=== PATIENT | female | born 1950 | race Caucasian/White ===

== ENCOUNTER → 2020-09-27 08:39 | Outpatient (CLI) | payer OTHER, SELFPAY ==
--- NOTE | ~2020-09-27 | US_ITS ---
US abdomen complete EXAMINATION: US Abdomen Complete INDICATION: Left upper abdominal pain PROCEDURE: Realtime High Resolution abdomen ultrasound. COMPARISON: No prior studies for comparison FINDINGS: Gallbladder within normal limits. No gallstones, pericholecystic fluid, gallbladder wall t hickening or biliary dilatation. Common bile duct measures 2 mm. Liver echotexture within normal limits without focal mass. Pancreas within normal limits. Pancreati c tail is obscured by bowel gas. Spleen contains a 6 mm echogenic focus, likely calcification or dutch ign hemangioma. Renal echotexture is within normal limits bilaterally without hydronephrosis, contour deforming mass or renal stone. Right kidney measures 10.6 cm. Left kidney measures 11.9 cm. There is atherosclerosis of the aorta without aneurysm. Portal vein is patent. No sonographic Eagle' s sign indicated by the technologist. IMPRESSION: 1: Unremarkable abdominal ultrasound. Reviewed, dictated and finalized at location A. RVISOR RECORDS CHANGE
--- NOTE | ~2020-09-27 | XR_ITS ---
XR chest 2V 09/27/2020 09:25 Indication: Emphysema Procedure: 2 view chest Comparison: 05/01/2017 Findings: Heart size normal. The lungs are hyperinflated which is consistent with, but not diagnostic of chronic obstructive pulmonary disease. No focal air space disease, pulmonary edema, pleural effus ion or suspected pneumothorax. Impression: 1: No acute cardiopulmonary disease. Reviewed, dictated and finalized at location A. ONENT ASSEMBLER Impression: 1: No acute cardiopulmonary disease.
== END ==
PROVIDERS: PCP Family Medicine; Visit Provider Family Medicine
DX: R10.9 Unspecified abdominal pain (principal); J43.9 Emphysema, unspecified
CPT/HCPCS: 71046; 76700

== ENCOUNTER → 2021-12-06 11:38 | Outpatient (CLI) | payer OTHER, SELFPAY ==
--- NOTE | ~2021-12-06 | MM_ITS ---
EXAMINATION: MM screening husam BI w eclina HISTORY: Screening mammogram TECHNIQUE: Craniocaudal and mediolateral oblique 3-D tomosynthesis images were obtained and synthetic 2-D images were generated. CAD analysis was submitted and interpreted. COMPARISON: 11/04/2013 bilateral screening mammogram BREAST PARENCHYMAL COMPOSITION: The breasts are heterogeneously dense, which may obscure small masses . FINDINGS: There is no evidence of suspicious mass, calcification, or architectural distortion to sugg est malignancy in either breast. There has been no suspicious interval change. IMPRESSION: 1. No mammographic evidence of malignancy. 2. Recommend routine screening mammography in one year. BI-RADS Category 1: Negative Reviewed, dictated and finalized at location A. N GOODS HEMMER
== END ==
PROVIDERS: Visit Provider Emergency Medicine
DX: Z12.31 Encounter for screening mammogram for malignant neoplasm of breast (principal)
CPT/HCPCS: 77063; 77067

== ENCOUNTER → 2021-12-26 12:01 | Outpatient (CLI) | payer OTHER, SELFPAY ==
--- NOTE | ~2021-12-26 | DEXA_ITS ---
Bone Density Report Name: PAULINE PHILIP Age: 71 Sex: Female Ethnicity: White Date of : 1950 Indication: postmenopausal; screening for osteoporosis; height loss; asthma or emphysema; hysterectomy; Referring Provider: HERLINDA KELLOGG Study: Bone densitometry was performed. Exam Date: December 26, 2021 Accession number: [id number] Bone Density: Region BMD T-score Z-score Classification AP Spine (L1-L4) 0.817 -2.1 0.0 Osteopenia Femoral Neck (Left) 0.677 -1.5 0.2 Osteopenia Total Hip (Left) 0.731 -1.7 -0.2 Osteopenia Femoral Neck (Right) 0.652 -1.8 0.0 Osteopenia Total Hip (Right) 0.717 -1.8 -0.3 Osteopenia Total Hip Mean 0.724 -1.8 -0.3 Osteopenia World Health Organization criteria for BMD impression classify patients as: Normal (T-score at or above -1.0), Osteopenia (T-score between -1.0 and -2.5), or Osteoporosis (T-score at or below -2.5). 10-year Fracture Risk(1): Major Osteoporotic Fracture 11% Hip Fracture 3.9% Reported Risk Factors: [place] (), Neck BMD=0.652, BMI=17.7, smoking, alcohol use (1) FRAX(R) Version 3.08. Fracture probability calculated for an untreated patient. Fracture probability may be lower if the patient has received treatment. Clinical Information Provided by Patient: Smokes Has 3 or more alcoholic drinks per day Has used the following medications: Vitamin D Has the following medical conditions: Asthma or Emphysema, Hysterectomy, COPD Patient maximum height was 64 Menopause Age: 42 Does not regularly consume dairy products Drinks caffeinated beverages Onset of menses at age 16 Number of children 2 Impression: The patient has low bone mass, based on the Total Spine T-score. The patient has an estimated ten-year risk of hip fracture of 3.9% and an estimated ten-year risk of major fracture of 11%, based on the WHO FRAX algorithm. The patient has risk factors, including: smoking, excessive alcohol use. Discussion: BONE DENSITY IS LOW AT ONE OR MORE SKELETAL SITES. THE PATIENT'S BMD AND CLINICAL RISK FACTORS CONTRIBUTE TO THIS PATIENT'S INCREASED RISK OF FRACTURE. This patient's lowest T-score is low at one or more skeletal sites. It meets the World Health Organization's (WHO) criteria for ?low bone mass? (T-score between -1.0 and -2.5). The patient's 10-year risk of hip fracture as calculated by FRAX exceeds the threshold where pharmacological therapy is recommended by the National Osteoporosis Foundation (NOF). However, all treatment decisions require clinical judgment and consideration of individual patient factors, including patient preferences, comorbidities, previous drug use, risk factors not captured in the FRAX model (e.g., frailty, falls, vitamin D deficiency, increased bone turnover, interval significant decline in bone density) and possible under
== END ==
PROVIDERS: PCP Emergency Medicine; Visit Provider Emergency Medicine
DX: Z78.0 Asymptomatic menopausal state (principal); M85.88 Other specified disorders of bone density and structure, other site; M85.852 Other specified disorders of bone density and structure, left thigh; M85.851 Other specified disorders of bone density and structure, right thigh
CPT/HCPCS: 77080

== ENCOUNTER → 2023-08-23 13:51 | Outpatient (CLI) | payer OTHER, SELFPAY ==
--- NOTE | ~2023-08-23 | MM_ITS ---
EXAMINATION: MM screening husam BI w celina HISTORY: Screening TECHNIQUE: Craniocaudal and mediolateral oblique 3-D tomosynthesis images were obtained and synthetic 2-D images were generated. CAD analysis was submitted and interpreted. COMPARISON: Comparison to multiple prior studies sequentially, with oldest reviewed study dated 11/04. BREAST PARENCHYMAL COMPOSITION: The breasts are extremely dense, which lowers the sensitivity of mamm ography FINDINGS: There is no evidence of suspicious mass, calcification, or architectural distortion to sugg est malignancy in either breast. There has been no suspicious interval change. IMPRESSION: 1. No mammographic evidence of malignancy. 2. Recommend routine screening mammography in one year. BI-RADS Category 1: Negative Reviewed, dictated and finalized at location A. SALES CONSULTANT
== END ==
PROVIDERS: PCP Emergency Medicine; Visit Provider Emergency Medicine
DX: Z12.31 Encounter for screening mammogram for malignant neoplasm of breast (principal)
CPT/HCPCS: 77063; 77067

== ENCOUNTER 2024-07-02 07:50 | Outpatient (CLI) | payer OTHER, SELFPAY | END 2024-07-02 07:51 | disposition home or self-care (01) | LOC: ANHAUDIO 07:51 | PROVIDERS: PCP Emergency Medicine; Visit Provider Emergency Medicine | DX: H90.42 Sensorineural hearing loss, unilateral, left ear, with unrestricted hearing on the contralateral side (principal) | CPT/HCPCS: 92557; 92567 ==

== ENCOUNTER 2024-09-29 08:00 | Outpatient (RCR) | payer OTHER, SELFPAY | END 2024-09-29 23:59 | disposition home or self-care (01) | LOC: ANHAUDIO 08:00 | PROVIDERS: PCP Emergency Medicine; Visit Provider Emergency Medicine | DX: Z46.1 Encounter for fitting and adjustment of hearing aid (principal) | CPT/HCPCS: V5221 ==

== ENCOUNTER 2024-10-17 10:48 | Outpatient (CLI) | payer OTHER, SELFPAY ==
--- NOTE | ~2024-10-17 | MM_ITS ---
EXAMINATION: MM screening husam BI w celina HISTORY: Screening mammogram, family history of breast cancer in her mother. TECHNIQUE: Craniocaudal and mediolateral oblique 3-D tomosynthesis images were obtained and synthetic 2-D images were generated. CAD analysis was submitted and interpreted. COMPARISON: 08/23/2023, 12/06/2021 BREAST PARENCHYMAL COMPOSITION:Dense: The breasts are heterogeneously dense, which may obscure small masses. FINDINGS: No suspicious mass, calcification, or architectural distortion are identified in either ciro ast to suggest malignancy. There has been no suspicious interval change. IMPRESSION: No mammographic evidence of malignancy. Recommend routine screening mammography in one year. BI-RADS Category 1: Negative Reviewed, dictated and finalized at location . MOLDER
== END 2024-10-17 10:49 | disposition home or self-care (01) ==
LOC: MICIMG 10:49
PROVIDERS: PCP Emergency Medicine; Visit Provider Emergency Medicine
DX: Z12.31 Encounter for screening mammogram for malignant neoplasm of breast (principal)
CPT/HCPCS: 77063; 77067

== ENCOUNTER 2024-10-29 10:42 | Outpatient (CLI) | payer OTHER, SELFPAY ==
--- NOTE | ~2024-10-29 | DEXA_ITS ---
Bone Density Report Name: PAULINE PHILIP Age: 74 Sex: Female Ethnicity: White Date of : 1950 Indication: postmenopausal; screening for osteoporosis; height loss; asthma or emphysema; hysterectomy; Referring Provider: HERLINDA KELLOGG Study: Bone densitometry was performed. Exam Date: October 29, 2024 Accession number: [id number] Bone Density: Region BMD T-score Z-score Classification AP Spine(L1-L4) 0.796 -2.3 0.0 Osteopenia Femoral Neck (Left) 0.659 -1.7 0.2 Osteopenia Total Hip (Left) 0.716 -1.9 -0.2 Osteopenia Femoral Neck (Right) 0.642 -1.9 0.1 Osteopenia Total Hip (Right) 0.730 -1.7 -0.1 Osteopenia Total Hip Mean 0.723 -1.8 -0.2 Osteopenia World Health Organization criteria for BMD impression classify patients as: Normal (T-score at or above -1.0), Osteopenia (T-score between -1.0 and -2.5), or Osteoporosis (T-score at or below -2.5). 10-year Fracture Risk(1): Major Osteoporotic Fracture 9.4% Hip Fracture 3.3% Reported Risk Factors: [place] (), Neck BMD=0.642, BMI=16.3, smoking (1) FRAX(R) Version 3.08. Fracture probability calculated for an untreated patient. Fracture probability may be lower if the patient has received treatment. Clinical Information Provided by Patient: Smokes Has used the following medications: Vitamin D, Calcium, cant remember name of drug for osteoporosis Has the following medical conditions: Asthma or Emphysema, Hysterectomy Patient maximum height was 64.0 Menopause Age: 42 Drinks caffeinated beverages Onset of menses at age 16 Number of children 2 Impression: The patient has low bone mass, based on the Total Spine T-score. The patient has an estimated ten-year risk of hip fracture of 3.3% and an estimated ten-year risk of major fracture of 9.4%, based on the WHO FRAX algorithm. The patient has risk factors, including: smoking. Discussion: BONE DENSITY IS LOW AT ONE OR MORE SKELETAL SITES. THE PATIENT'S BMD AND CLINICAL RISK FACTORS CONTRIBUTE TO THIS PATIENT'S INCREASED RISK OF FRACTURE. This patient's lowest T-score is low at one or more skeletal sites. It meets the World Health Organization's (WHO) criteria for ?low bone mass? (T-score between -1.0 and -2.5). The patient's 10-year risk of hip fracture as calculated by FRAX exceeds the threshold where pharmacological therapy is recommended by the National Osteoporosis Foundation (NOF). However, all treatment decisions require clinical judgment and consideration of individual patient factors, including patient preferences, comorbidities, previous drug use, risk factors not captured in the FRAX model (e.g., frailty, falls, vitamin D deficiency, increased bone turnover, interval significant decline in bone density) and possible under or overestimation of fracture risk by FRAX. The patient should follow a healthful lifestyle (good nutrition with adequate calcium and vitamin D, and appropriate weight-bearing exercise). Follow-Up: Consider a repeat BMD and Vertebral Fracture Assessment (VFA) exam in 2 years or sooner if medically necessary, to reassess this patient's status. Reported by: MOSES on 10/29/2024 11:19:00 AM. Reviewed, dictated and finalized at location AQuin APARICIO
== END 2024-10-29 10:43 | disposition home or self-care (01) ==
LOC: ANHIMG 10:48
PROVIDERS: PCP Emergency Medicine; Visit Provider Emergency Medicine
DX: E55.9 Vitamin D deficiency, unspecified (principal); Z78.0 Asymptomatic menopausal state; M85.88 Other specified disorders of bone density and structure, other site; M85.852 Other specified disorders of bone density and structure, left thigh; M85.851 Other specified disorders of bone density and structure, right thigh
CPT/HCPCS: 77080

== ENCOUNTER 2024-11-06 07:48 | Outpatient (CLI) | payer OTHER, SELFPAY ==
--- NOTE | ~2024-11-06 | XR_ITS ---
EXAMINATION: XR chest 2V DATE: 11/06/2024 08:05 INDICATION: Chronic obstructive pulmonary disease. TECHNIQUE: Frontal and lateral views of the chest were obtained. COMPARISON: Chest 2 views 09/27/2020, chest CT 06/04/2017 FINDINGS: The lungs are hyperexpanded with lucencies, consistent with emphysema. There are airspace o pacities at the lung bases on the lateral view. No pleural effusion or pneumothorax. The heart size i s normal. IMPRESSION: 1. Airspace opacities at the lung bases, consistent with atelectasis versus pneumonia. 2. Emphysema. Reviewed, dictated and finalized at location [] EYOR TENDER CONCRETE M[employer]ING [employer]ANT IMPRESSION: 1. Airspace opacities at the lung bases, consistent with atelectasis versus pne umonia. 2. Emphysema.
== END 2024-11-06 07:49 | disposition home or self-care (01) ==
PROVIDERS: PCP Emergency Medicine; Visit Provider Emergency Medicine
DX: J44.9 Chronic obstructive pulmonary disease, unspecified (principal); R91.8 Other nonspecific abnormal finding of lung field; J43.9 Emphysema, unspecified
CPT/HCPCS: 71046

== ENCOUNTER 2025-07-27 12:18 | Inpatient (IN) | payer OTHER, MEDICARE, SELFPAY ==
[2025-07-27] VITALS (13 sets, daily range): BP systolic 132–168; BP diastolic 59–76; PULSE 88–130; RESP 16–23; TEMP 35.9–36.2; O2SAT 86–100; BMI 15.5
--- NOTE | ~2025-07-27 | XR_ITS ---
EXAMINATION: XR chest 2V, 07/27/2025 12:45 CDT HISTORY: SOB COMPARISON: Comparison 11/06/2024 Technique: 2 views obtained. Findings: COPD changes. Basilar infiltrates and small effusion. On the lateral view there is a pleural-based nodular density measuring 1.5 x 1.5 cm probably in the left lower lobe. No pneumothorax. Heart is normal size. Mediastinal and hilar contours are within normal limits. Bony thorax no acute abnormality. Impression: Bilateral pneumonia superimposed on chronic lung disease. Left lung nodule. Chest CT with contrast recommended Reviewed, dictated and finalized at location P. Impression: Bilateral pneumonia superimposed on chronic lung disease. Left lung nodule. [facility] CT with contrast recommended
--- OUTSIDE RECORDS SUMMARY | 2025-07-27 07:42 | XMS_ITS | Encounter Summary ---
Author Organization [facility] Healthcare Address [address] [place] [address] Care Team Providers Care Provider Scribe Name Role Phone Girish Medina MD Primary Care Provide r Reason for Referral * MRI/CAT/PET Scan (Routine) - Closed Specialty Diagnoses / Procedures Referred By Contac t Referred To Contact Radiology Diagnoses Abdominal pain, unspecified abdominal location Shortness of breath Procedures CT Chest Abdomen Pelvis W Contrast Girish Medina MD [address] [address] Phone: tel: fax: [address] [phone] Referral ID Status Reason Start Date Expiration Date Visits Re quested Visits Authorized [id number] Closed 07/14/2025 08/13/2026 1 1 Reason for Visit * MRI/CAT/PET Scan (Routine) - Closed Specialty Diagnoses / Procedures Referred By Contac t Referred To Contact Radiology Diagnoses Abdominal pain, unspecified abdominal location Shortness of breath Procedures CT Chest Abdomen Pelvis W Contrast Girish Medina MD [address] [place] [address] Phone: tel: fax: [address] [phone] Referral ID Status Reason Start Date Expiration Date Visits Re quested Visits Authorized [id number] Closed 07/14/2025 08/13/2026 1 1 Encounter Details Date Type Department Care Team (Latest Contact Info) Description 07/27/2025 7:42 AM CDT Hospital [facility] [address] [place] [address] Abdominal pain, unspecified abdominal location; Shortness of breath Social History Tobacco Use Types Packs/Day Years Used Date Smoking Tobacco: Never Assessed Comments Unknown Sex and Gender Information Value Date Recorded Sex Assigned at Not on file 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 Gender Identity Not on file Sexual Orientation Not on file documented as of this encounter Plan of Treatment Pending Results Name Type Priority Associated Diagnoses Date /Time CT Chest Abdomen Pelvis W Contrast Imaging Schedule Routine, Read Routine (OP Routine) Abdominal pain, unspecified abdominal location Shortness of breath 07/27/2025 8:09 AM CDT Scheduled Orders Name Type Priority Associated Diagnoses Orde r Schedule CT Chest Abdomen Pelvis W Contrast Imaging Schedule Routine, Read Routine (OP Routine) Abdominal pain, unspecified abdominal location Shortness of breath Once for 1 Occurrences starting 07/27/2025 until 07/27/2025 documented as of this encounter Visit Diagnoses Diagnosis Abdominal pain, unspecified abdominal location Shortness of breath documented in this encounter Administered Medications Inactive Administered Medications - up to 3 most recent administrations Medication Order MAR Action Action Date Dose Rate Site ioversoL (OPTIRAY 350) syringe 100 mL 100 mL, intravenous, Once in imaging, contrast, Starting on 07/27/25 at 0806, For 1 dose Contrast Given 07/27/2025 8:06 AM CDT 90 mL documented in this encounter Orders Medications Ordered That Michael ht Not Have Been Administered Count Last Ordered Date First Ordered Date ioversoL (OPTIRAY 350) syringe 100 mL 1 documented in this encounter Care Teams Provider Scribe Relationship Specialty Start Date End Date Girish Medina MD [address] [place] [address] PCP - General Emergency Medicine 07/20/25 documented as of this encounter
--- OUTSIDE RECORDS SUMMARY | 2025-07-27 07:42 | XMS_ITS | Encounter Summary ---
Author Organization [facility] Healthcare Address [address] [place] [address] Care Team Providers Care Company Laborer Name Role Phone Girish Medina MD Primary Care Provide r Reason for Referral * MRI/CAT/PET Scan (Routine) - Closed Specialty Diagnoses / Procedures Referred By Contac t Referred To Contact Radiology Diagnoses Abdominal pain, unspecified abdominal location Shortness of breath Procedures CT Chest Abdomen Pelvis W Contrast Girish Medina MD [address] [address] Phone: tel: fax: [address] [phone] Referral ID Status Reason Start Date Expiration Date Visits Re quested Visits Authorized [id number] Closed 07/14/2025 08/13/2026 1 1 Reason for Visit * MRI/CAT/PET Scan (Routine) - Closed Specialty Diagnoses / Procedures Referred By Contac t Referred To Contact Radiology Diagnoses Abdominal pain, unspecified abdominal location Shortness of breath Procedures CT Chest Abdomen Pelvis W Contrast Girish Medina MD [address] [place] [address] Phone: tel: fax: [address] [phone] Referral ID Status Reason Start Date Expiration Date Visits Re quested Visits Authorized [id number] Closed 07/14/2025 08/13/2026 1 1 Encounter Details Date Type Department Care Team (Latest Contact Info) Description 07/27/2025 7:42 AM CDT Hospital Encounter [facility] [address] [place] [address] Abdominal pain, unspecified abdominal location; Shortness of breath Social History Tobacco Use Types Packs/Day Years Used Date Smoking Tobacco: Never Assessed Comments Unknown Sex and Gender Information Value Date Recorded Sex Assigned at Not on file Legal Sex Female 3:05 AM NEWSPERSON Gender Identity Not on file Sexual Orientation [...] 1 documented in this encounter Care Teams Company Laborer Relationship Specialty Start Date End Date Girish Medina MD [address] [place] [address] PCP - General Emergency Medicine 07/20/25 documented as of this encounter
--- NOTE | 2025-07-27 12:34 | ECG_ITS ---
Test Date: 2025-07-27 12:49:33 Measurements Intervals [place] Rate: 127 P: 71 TX: 136 QRS: 47 QRSD: 84 T: 59 QT: 310 QTc: 452 Interpretive Statements SINUS TACHYCARDIA MINIMAL Q WAVES- ANTEROLATERAL LEADS BASELINE ARTIFACT- I, II, AVR, AVL ABNORMAL ECG No previous ECG available for comparison Electronically Signed On 07-27-2025 15:41:24 CDT by Binu Segundo D.O.
[2025-07-27 12:47] LABS: Hematocrit 37.9 % (37.0-47.0); Hemoglobin 13.2 g/dL (12.0-15.0); Immature Granulocyte Percent A 1.0 % (0-0.5); Lymphocytes Absolute Auto 1.34 K/mm3 (0.9-3.2); Mean Corpuscular HGB Conc 34.8 g/dl (32-36); Mean Corpuscular Hemoglobin 29.7 pg (26-34); Mean Corpuscular Volume 85.4 fl (80-100); Nucleated Red Blood Cells Absolute Auto 0.000 K/mm3 (0.0-0.012); Nucleated Red Blood Cells Perc 0.0 % (0.0-0.2); Platelet Count Result 447 k/mm3 (150-375); Red Blood Count 4.44 M/mm3 (4.2-5.4); White Blood Count 33.5 K/mm3 (4.5-10.0)
[2025-07-27 13:05] LABS: Alanine Aminotransferase 32 U/L (6-35); Albumin Level 3.4 g/dL (3.5-5.1); Alkaline Phosphatase 149 U/L (38-126); Anion Gap 8 mmol/L (4-12); Aspartate Amino Transferase 40 U/L (14-36); Bilirubin,Total 0.5 mg/dL (0.2-1.3); Blood Urea Nitrogen 7 mg/dL (7-17); Calcium 8.9 mg/dL (8.4-10.2); Carbon Dioxide 30 mmol/L (22-30); Chloride 87 mmol/L (98-107); Estimated CRCL calculation 46 ml/min; Estimated Glomerular Filt Rate > 60; Glucose 131 mg/dL (65-110); Potassium 3.0 mmol/L (3.4-5.0); Sodium 125 mmol/L (137-145); Total Protein 6.7 g/dL (6.3-8.2)
--- OUTSIDE RECORDS SUMMARY | 2025-07-27 13:20 | XMS_ITS | Clinical Summary ---
Author Organization [facility] [place] Address [address] [place] [address] Care Team Providers Care Repair Table Operator Name Role Phone Girish Medina MD Primary Care Provide r Allergies No known active allergies Encounters Date Type Department Care Team Description 07/27/2025 7:42 AM CDT [facility] [address] [place] [address] Abdominal pain, unspecified abdominal location; Shortness of breath from Last 3 Months Social History Tobacco Use Types Packs/Day Years Used Date Smoking Tobacco: Never Assessed Comments Unknown Sex and Gender Information Value Date Recorded Sex Assigned at Not on file Legal Sex Female 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 Gender Identity Not on file Sexual Orientation Not on file Plan of Treatment Health Maintenance Due Date Last Done Comments Breast Cancer Screening-Mammogram 1950 Colon Cancer Screening-Colonoscopy 1950 Depression Screening 1950 Fall Risk Assessment 1950 Hepatitis C Screening 1950 Osteoporosis Screening-Bone Density Scan 1950 Hepatitis B Screening 01/04/1970 Well Visit 65+ 01/04/2017 Influenza Vaccine (#1) 2025 , 06/30/2023, 06/24/2022, Additional history exists DTaP/Tdap/Td Vaccine (2 - Td or Tdap) 02/11/2033 02/11/2023 Pneumococcal vaccine 65+ Completed 08/26/2022 Covid-19 Vaccine Completed 01/21/2025, 07/2024, 07/21/2023, Additional history exists Zoster Vaccine Completed 04/04/2025, 01/21/2025 Insurance [facility] Care Teams Repair Table Operator Relationship Specialty Start Date End Date Girish Medina MD [address] [place], [place] [phone] PCP - General Emergency Medicine 07/20/25
[2025-07-27] MEDS: IPRATROPIUM 0.5 MG/ALBUTEROL SULFATE 2.5 MG (BASE) AMPUL.NEB 3 ML INHALATION ×2 (13:47→19:19)
[2025-07-27] MEDS: cefTRIAXone 1 GM in SODIUM CHLORIDE 0.9% IV 50 ML 100 ML IVPB (14:16)
[2025-07-27] MEDS: SODIUM CHLORIDE 0.9% IV 1,000 ML 999 ML IV CONT (14:18)
--- OUTSIDE RECORDS SUMMARY | 2025-07-27 14:19 | XMS_ITS | Clinical Summary ---
Author Organization [facility] [place] Address [address] [place] [address] Care Team Providers Care Audiology Doctor Name Role Phone Girish Medina MD Primary Care Provide r Allergies No known active allergies Encounters Date Type Department Care Team Description 07/27/2025 7:42 AM CDT [facility] [address] [place] [address] Abdominal pain, unspecified abdominal location; Shortness of breath from Last 3 Months Social History Tobacco Use Types Packs/Day Years Used Date Smoking Tobacco: Never Assessed Comments Unknown Sex and Gender Information Value Date Recorded Sex Assigned at Not on file 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
[2025-07-27] MEDS: AZITHROMYCIN IV 500 MG in SODIUM CHLORIDE 0.9% IV 250 ML IVPB (14:27)
--- NOTE | 2025-07-27 14:28 | ED_ITS ---
HPI - SOB/Dyspnea General Chief Complaint: Shortness of Breath/Dyspnea Stated Complaint: shortness of breath, out of meds Time Seen by Provider: 07/27/25 12:35 History of Present Illness HPI Narrative: Patient is a 75-year-old female who presents ER with progressive shortness of breath over last 2 weeks. She feels it is related to the fact that she does not have her nebulizer medication. No fevers or chills. No productive cough. She does have a chronic wet cough that has been unchanged and is nonproductive. No chest pain or chest pressure. Unable to walk more than a block at this time, typically she can walk 2 blocks before she has to rest. On arrival here patient was hypoxic and is now requiring O2 which is a new experience for her. Patient had an outpatient CT scan of her chest today at [facility] but does not know the results. It was ordered by her PCP due to her shortness of breath. Related Data Allergies Allergy/AdvReac Type Severity Reaction Status Date / Time No Known Allergies Allergy Verified 07/27/25 15:49 Review of Systems 2 Review of Systems: All systems reviewed & are unremarkable except as noted in HPI and below Constitutional: Constitutional: Reports no additional constitutional complaints Cardiovascular: Cardiovascular: Reports no additional cardiovascular complaints Respiratory: Respiratory: Reports no additional respiratory complaints Gastrointestinal: Gastrointestinal: Reports no additional gastrointestinal complaints Integumentary/Breasts: Skin/Breast: Reports system reviewed and no additional complaints, except as docu PMFSH Past Medical History Medical History Sinus congestion Urge incontinence Hyponatremia COPD (chronic obstructive pulmonary disease) HTN (hypertension) Surgical History Surgical History History of hysterectomy (~1991) Family History Family History Father , 82 Kidney failure Hypertension Cancer Mother , 75 Liver failure Cancer Social History Social History Social History: Patient drinks 4 cups of caffeine daily Smoking packs per day: 1 Smoking cigarettes per day: 20.0 Years smoked: 40 Smoking pack-years: 40.00 Smoking status: Current every day smoker Tobacco type: cigarettes Alcohol intake: current Drinks per week: 8 Alcohol use details: Patient drinks 4 beers per day Substance use: never Substance use type: does not use Do You Feel Safe in your Home?: Yes Lack of Transportation: No Lack of Food: Never True Current Housing: I Have Housing Concerned About Future Housing: No Difficulty Paying Gas/Electric Bills: No Difficulty Paying for Meds: No Currently Unemployed: No Education: Decline to Answer Difficulty w/ Childcare or Family Care: No Spiritual care concerns: No Exam 2 Narrative: GENERAL: Chronically ill/frail-appearing, and in no acute distress. HEAD: Normocephalic, atraumatic. ENT: Mucous membranes moist. CHEST: Diminished lung sounds bilaterally. No respiratory distress. Frequent wet cough. HEART: Tachycardic, audible click at left lower sternal border. Normal peripheral pulses. ABDOMEN: Soft, nontender, nondistended. EXTREMITIES: Normal range of motion. No edema. SKIN: Warm, dry, no rash. NEURO: Alert and oriented x3. PSYCH: Normal mood and affect. Course Course Emergency Course: Admit to hospitalist Service, broad-spectrum antibiotics for pneumonia. Fluid resuscitation provided. Vital Signs Vital signs: Vital Signs Pulse Oximetry 86 L 07/27/25 12:34 Oxygen Delivery Room Air 07/27/25 12:34 Temperature 97.2 F L 07/27/25 20:04 Pulse Rate 97 07/27/25 20:04 Respiratory Rate 16 07/27/25 20:04 Blood Pressure 132/59 L 07/27/25 20:04 Pulse Oximetry 90 07/27/25 20:04 Oxygen Delivery Nasal Cannula 07/27/25 19:19 Oxygen Flow Rate 1 07/27/25 19:19 MDM - SOB/Dyspnea Lab Data 07/27/25 12:42 07/27/25 12:42 Labs: Lab Results 07/27/25 07/27/25 Range/Units 12:42 14:01 WBC 33.5 H (4.5-10.0) K/mm3 RBC 4.44 (4.2-5.4) M/mm3 Hgb 13.2 (12.0-15.0) g/dL Hct 37.9 (37.0-47.0) % MCV 85.4 (80-100) fl MCH 29.7 (26-34) pg MCHC 34.8 (32-36) g/dl RDW 14.4 (11.5-14.5) % Plt Count 447 H (150-375) k/mm3 MPV 8.8 (7.4-10.4) fl Immature Gran % (Auto) 1.0 H (0-0.5) % Neut % (Auto) 87.1 H (45.5-73.1) % Lymph % (Auto) 4.0 L (18.3-44.2) % [place] % (Auto) 7.5 (2.6-8.5) % Eos % (Auto) 0.2 (0-4.4) % Baso % (Auto) 0.2 (0.2-1.2) % Lymph # (Auto) 1.34 (0.9-3.2) K/mm3 [place] # (Auto) 2.5 H (0.1-0.6) K/mm3 Eos # (Auto) 0.1 (0-0.3) K/mm3 Baso # (Auto) 0.1 (0.0-0.1) K/mm3 Abs Immat Gran (auto) 0.35 H (0.00-0.031) K/mm3 Absolute Neuts (auto) 29.1 H (1.3-6.7) K/mm3 Absolute Nucleated RBC 0.000 (0.0-0.012) K/mm3 Nucleated RBC % 0.0 (0.0-0.2) % Sodium 125 L (137-145) mmol/L Potassium 3.0 L (3.4-5.0) mmol/L Chloride 87 L (98-107) mmol/L Carbon Dioxide 30 (22-30) mmol/L Anion Gap 8 (4-12) mmol/L BUN 7 (7-17) mg/dL Creatinine 0.53 L (0.7-1.0) mg/dL Estim Creat Clear Calc 46 ml/min Estimated GFR > 60 (59 - ) Glucose 131 H (65-110) mg/dL Lactic Acid 1.4 (0.7-2.0) mmol/L Calcium 8.9 (8.4-10.2) mg/dL Total Bilirubin 0.5 (0.2-1.3) mg/dL AST 40 H (14-36) U/L ALT 32 (6-35) U/L Alkaline Phosphatase 149 H (38-126) U/L Total Protein 6.7 (6.3-8.2) g/dL Albumin 3.4 L (3.5-5.1) g/dL Critical Care Time Critical Care Time Critical Care Time: Yes Total Critical Care Time: 35 Discharge Plan Discharge Clinical Impression: Pneumonia, Hypoxia Patient Disposition: Still a Patient Condition: Stable
[2025-07-27] MEDS: SODIUM CHLORIDE 0.9% IV 500 ML 999 ML IV CONT (14:30)
--- NOTE | 2025-07-27 14:42 | PC.NURSE ---
Pt/pt's reports that pt had chest CT with contrast completed this am. This RN called and spoke with the Clinical Radiologist group at this time and requested results be faxed to [facility].
--- NOTE | 2025-07-27 15:50 | P.HP_ITS ---
H&P: HPI History of Present Illness Date/Time: 07/27/25 15:50 Chief Complaint: Shortness of breath Narrative: 75-year-old female with past medical history of COPD-baseline RA, current smoker, HTN presented to the ED on 07/27/2025 with complaints of shortness of breath over the last 2 weeks. Patient feels that this is due to her running out of her albuterol inhaler and her Breztri. Patient denies fevers, chills, chest pain, or productive cough. She does have a chronic dry cough that is unchanged. Patient states she was able walk at least a couple blocks before needing to rest but states now she can barely go down the [place] without feeling short of breath. Upon arrival to the ED, patient was found to be 86% on room air and subsequently placed on 2 L of O2 with improvement in her O2 sats to 90%. Patient had CT chest abdomen pelvis today, 07/27/2025, with contrast ordered by her PCP at [facility] to evaluate shortness of breath (results scanned in). Imaging reveals: - patchy ground-glass and consolidative airspace opacities in the left upper and left lower lobe, concerning for multifocal airspace disease or inflammatory infectious etiology. -Scattered mild bronchial wall thickening with mucus plugging likely related to mild acute bronchitis/bronchiolitis superimposed on chronic bronchitis/bronchiolitis -moderate to severe emphysematous changes with scattered subsegmental atele ctasis and scarring -borderline enlarged prominent subcentimeter mediastinal and left hilar lymph nodes; likely reactive -mild mucosal thickening of distal transverse descending and sigmoid colon -mild mucosal thickening of the urinary bladder -mild mucosal thickening of the gastric atrium -bilateral indeterminate adrenal nodules Chest x-ray at this facility reveals bilateral pneumonia superimposed on chronic lung disease, left lung nodule Initial vital signs 168/76 BP, heart rate 130, respirations 23, temp 96.6? F, SpO2 86% on room air; improved with 2 L per nasal cannula Lab significant for leukocytosis with white count 33.5, Na 125, potassium 3.0, AST 40, alk-phos 149, albumin 3.4 Blood cultures drawn 500 mL NS bolus Review of Systems Review of Systems: All systems reviewed & are unremarkable except as noted in HPI and below PMFSH Past Medical History Medical History Sinus congestion Urge incontinence Hyponatremia COPD (chronic obstructive pulmonary disease) HTN (hypertension) Surgical History Surgical History History of hysterectomy (~1991) Family History Family History Father , 82 Kidney failure Hypertension Cancer Mother , 75 Liver failure Cancer Social History Social History Social History: Patient drinks 4 cups of caffeine daily Smoking packs per day: 1 Smoking cigarettes per day: 20.0 Years smoked: 40 Smoking pack-years: 40.00 Smoking status: Current every day smoker Alcohol intake: current Drinks per week: 28 Alcohol use details: Patient drinks 4 beers per day Substance use: never Substance use type: does not use Do You Feel Safe in your Home?: Yes Lack of Transportation: No Lack of Food: Never True Current Housing: Decline to Answer Concerned About Future Housing: Decline to Answer Difficulty Paying Gas/Electric Bills: Decline to Answer Difficulty Paying for Meds: Decline to Answer Currently Unemployed: Decline to Answer Education: Decline to Answer Difficulty w/ Childcare or Family Care: Decline to Answer Meds Home Medications and Allergies Home Medications ?Medication ?Instructions ?Recorded ?Confirmed ?Type alendronate 70 mg tablet See Rx Instructions .Route 0 06/23/25 07/27/25 Rx .COMPLEX #12 tabs fluticasone propionate 50 1 spray intranasal BID #48 g lloyd 06/23/25 07/27/25 Rx mcg/actuation nasal spray,suspension (Flonase Allergy Relief) metoprolol tartrate 50 See Rx Instructions .Route 0 06/23/25 07/27/25 Rx mg-hydrochlorothiazide 25 mg tablet .COMPLEX #90 tabs tolterodine 2 mg tablet 2 mg PO DAILY #90 tabs 06/2307/27/25 Rx albuterol sulfate 90 mcg/actuation See Rx Instructions .Route 07/17/25 07/27/25 Rx aerosol inhaler .COMPLEX #8.5 ea budesonide 160 mcg-glycopyr 9 2 inh inhalation BID #32 .1 grams 07/17/25 07/27/25 Rx mcg-formot 4.8 mcg/actuation HFA inhaler (Breztri Aerosphere) Allergies Allergy/AdvReac Type Severity Reaction Status Date / Time No Known Allergies Allergy Verified 07/27/25 15:49 Vital Signs Vital Signs - 24 hr 07/27/25 12:34 07/27/25 12:35 07/27/25 12:39 Pulse Rate 130 H Respiratory Rate 23 H Blood Pressure 168/76 H Pulse Oximetry 86 L 94 95 Oxygen Delivery Room Air Nasal Cannula Nasal Cannula Oxygen Flow Rate 2 2 07/27/25 12:43 07/27/25 13:47 07/27/25 15:13 Pulse Rate 112 H 108 H Respiratory Rate 16 20 Blood Pressure 154/69 H Pulse Oximetry 95 100 Oxygen Delivery Nasal Cannula Oxygen Flow Rate 2 Exam Narrative: GENERAL: Chronically ill-appearing, in no acute distress. HEAD: Normocephalic, atraumatic. EYES: PERRLA. Conjunctivae clear. NOSE: Normal no drainage. Nasal cannula in place THROAT: Pharynx clear, no exudate. NECK: Trachea midline. No adenopathy, no masses. RESPIRATORY: Airway patent, respirations nonlabored. Diminished breath sounds throughout. CARDIOVASCULAR: Regular rate and rhythm. No edema. Peripheral pulses palpable BREASTS: Defer GASTROINTESTINAL: Abdomen is soft and nontender. No organomegaly. Bowel sounds normal in all quadrants. GENITOURINARY: Defer MUSCULOSKELETAL: Moves all extremities. No gross deformities. Moves all extremities well. No calf tenderness. SKIN: Warm, dry, normal color. NEURO: A&O X4. Speech clear PSYCHIATRIC: Normal interaction H&P: Results Labs Labs: Short CBC 07/27/25 Range/Units 12:42 WBC 33.5 H (4.5-10.0) K/mm3 Hgb 13.2 (12.0-15.0) g/dL Hct 37.9 (37.0-47.0) % Plt Count 447 H (150-375) k/mm3 BMP 07/27/25 12:42 Sodium 125 L Potassium 3.0 L Chloride 87 L Carbon Dioxide 30 BUN 7 Creatinine 0.53 L Glucose 131 H Calcium 8.9 Liver Function 07/27/25 Range/Units 12:42 Total Bilirubin 0.5 (0.2-1.3) mg/dL AST 40 H (14-36) U/L ALT 32 (6-35) U/L Alkaline Phosphatase 149 H (38-126) U/L Albumin 3.4 L (3.5-5.1) g/dL Assessment and Plan Assessment and plan (1) Pneumonia: Qualifiers: Laterality: bilateral Lung location: unspecified part of lung Pneumonia type: due to unspecified organism Qualified Code(s): J18.9 - Pneumonia, unspecified organism Code(s): J18.9 - Pneumonia, unspecified organism Status: Acute Assessment and Plan: Patient presents to ED with 2 week history of shortness of breath. History of COPD and current smoker. Chest x-ray at this facility reveals bilateral pneumonia superimposed on chronic lung disease, left lung nodule. See CT chest abdomen pelvis results in HPI - started on CAP tx azithromycin and ceftriaxone on 07/27 - MRSA PCR negative -viral PCR ordered -new supplemental O2 at 2 L nasal cannula required. Wean as tolerated -Tylenol 650 Q 4 p.r.n. -DuoNeb q.6 -Mucinex 600 mg q.12 (2) Hypoxia: Code(s): R09.02 - Hypoxemia Status: Acute Assessment and Plan: History of COPD and current smoker. O2 86% on room air on arrival. currently requiring supplemental O2 likely due to active pneumonia superimposed on emphysema -wean as tolerated -encourage IS use (3) COPD (chronic obstructive pulmonary disease): Qualifiers: COPD type: unspecified COPD Qualified Code(s): J44.9 - Chronic obstructive pulmonary disease, unspecified Code(s): J44.9 - Chronic obstructive pulmonary disease, unspecified Status: Chronic Assessment and Plan: Current smoker. Chest CT with moderate to severe emphysematous changes with scattered subsegmental atelectasis and scarring -albuterol inhaler and Breztri at home -DuoNebs while inpatient -smoking cessation information provided (4) HTN (hypertension): Qualifiers: Hypertension type: essential hypertension Qualified Code(s): I10 - Essential (primary) hypertension Code(s): I10 - Essential (primary) hypertension Status: Chronic Assessment and Plan: Continue hydrochlorothiazide and metoprolol Plan Diet: Heart healthy GI prophylaxis: NA DVT prophylaxis: SCDs lines/drains: PIV Fluids: 500 mL NS Code status: Full Quality VTE Prophylaxis VTE prophylaxis: mechanical ordered Hospitalist MIPS Advance Care Plan I have confirmed that the patient's Advanced Care Plan is present, code status is documented, or surrogate decision maker is listed in patient medical record.: Yes Medication Reconciliation I have utilized all available resources to obtain, update and review the patients current medications (includes all prescriptions, OTC, herbals, cannabis, and nutritional supplements).: Yes
--- NOTE | 2025-07-27 16:03 | ADMGEN ---
This patient, Reina Carrillo, was admitted to [facility] Surg Room 312-01. Patient/family oriented to hospital policies and general routines including ID bracelet, bed and alarms, visiting hours, pain management, procedures, bathroom and other care routines, personal items, smoking policy, room service/diet, and visiting hours. Information on how to activate the Rapid Response Team has been discussed. Patient/Family are encouraged to report perceived risks to care and to ask questions if they do not understand what they are told or what they should do. received report from Teri
[2025-07-27] MEDS: SODIUM CHLORIDE 0.9% IV 1,000 ML 125 ML IV CONT (18:39)
[2025-07-27 19:34] LABS: MRSA (PCR) NOT DETECTED (NOT DETECTE)
[2025-07-28] VITALS (15 sets, daily range): BP systolic 155–172; BP diastolic 75–84; PULSE 71–95; RESP 16–20; TEMP 36.4–36.6; O2SAT 90–94; BMI 15.5
[2025-07-28] MEDS: IPRATROPIUM 0.5 MG/ALBUTEROL SULFATE 2.5 MG (BASE) AMPUL.NEB 3 ML INHALATION ×4 (01:37→20:00)
[2025-07-28] MEDS: SODIUM CHLORIDE 0.9% IV 1,000 ML 125 ML IV CONT ×2 (03:35→19:30)
[2025-07-28 04:33] LABS: Influenza A QL RT-PCR Negative (Negative); Influenza B QL RT-PCR Negative (Negative); RSV RNA, RT-PCR Negative (Negative); SARS-CoV-2 RNA PCR Negative (Negative)
[2025-07-28 06:19] LABS: Hematocrit 35.9 % (37.0-47.0); Hemoglobin 12.1 g/dL (12.0-15.0); Mean Corpuscular HGB Conc 33.7 g/dl (32-36); Mean Corpuscular Hemoglobin 29.5 pg (26-34); Mean Corpuscular Volume 87.6 fl (80-100); Platelet Count Result 418 k/mm3 (150-375); Red Blood Count 4.10 M/mm3 (4.2-5.4); White Blood Count 20.4 K/mm3 (4.5-10.0)
[2025-07-28 06:53] LABS: Anion Gap 2 mmol/L (4-12); Blood Urea Nitrogen 2 mg/dL (7-17); Calcium 7.9 mg/dL (8.4-10.2); Carbon Dioxide 29 mmol/L (22-30); Chloride 99 mmol/L (98-107); Estimated CRCL calculation 84 ml/min; Estimated Glomerular Filt Rate > 60; Glucose 91 mg/dL (65-110); Sodium 130 mmol/L (137-145)
--- NOTE | 2025-07-28 07:30 | P.PNIM_ITS ---
Progress Note: A&P Assessment and Plan (1) Pneumonia: Qualifiers: Laterality: bilateral Lung location: unspecified part of lung Pneumonia type: due to unspecified organism Qualified Code(s): J18.9 - Pneumonia, unspecified organism Code(s): J18.9 - Pneumonia, unspecified organism Status: Acute Assessment and Plan: Patient presents to ED with 2 week history of shortness of breath. History of COPD and current smoker. Chest x-ray at this facility reveals bilateral pneumonia superimposed on chronic lung disease, left lung nodule. See CT chest abdomen pelvis results in HPI - started on CAP tx azithromycin and ceftriaxone on 07/27 - MRSA PCR negative -viral PCR ordered -new supplemental O2 at 2 L nasal cannula required. Wean as tolerated -Tylenol 650 Q 4 p.r.n. -DuoNeb q.6 -Mucinex 600 mg q.12 continue zithro IV, rocephin 1 gm q24h wean o2 as tolerated PT/OT added IS (2) Hypoxia: Code(s): R09.02 - Hypoxemia Status: Acute Assessment and Plan: History of COPD and current smoker. O2 86% on room air on arrival. currently requiring supplemental O2 likely due to active pneumonia superimposed on emphysema -wean as tolerated -encourage IS use (3) COPD (chronic obstructive pulmonary disease): Qualifiers: COPD type: unspecified COPD Qualified Code(s): J44.9 - Chronic obstructive pulmonary disease, unspecified Code(s): J44.9 - Chronic obstructive pulmonary disease, unspecified Status: Chronic Assessment and Plan: Current smoker. Chest CT with moderate to severe emphysematous changes with scattered subsegmental atelectasis and scarring -albuterol inhaler and Breztri at home -DuoNebs while inpatient -smoking cessation information provided (4) HTN (hypertension): Qualifiers: Hypertension type: essential hypertension Qualified Code(s): I10 - Essential (primary) hypertension Code(s): I10 - Essential (primary) hypertension Status: Chronic Assessment and Plan: Continue hydrochlorothiazide and metoprolol (5) Hypokalemia: Code(s): E87.6 - Hypokalemia Status: Acute Assessment and Plan: - K is 2.6 today - will order iV replacement, add PO daily and will recheck K level once iv is infused - continue tele Plan Diet: Heart healthy GI prophylaxis: NA DVT prophylaxis: SCDs lines/drains: PIV Fluids: 500 mL 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 Patient feels that this is due to her running out of her albuterol inhaler and her Breztri. Patient denies fevers, chills, chest pain, or productive cough. She does have a chronic dry cough that is unchanged. Patient states she was able walk at least a couple blocks before needing to rest but states now she can barely go down the [place] without feeling short of breath. Upon arrival to the ED, patient was found to be 86% on room air and subsequently placed on 2 L of O2 with improvement in her O2 sats to 90%. Patient had CT chest abdomen pelvis today, 07/27/2025, with contrast ordered by her PCP at [facility] to evaluate shortness of breath (results scanned in). Imaging reveals: - patchy ground-glass and consolidative airspace opacities in the left upper and left lower lobe, concerning for multifocal airspace disease or inflammatory infectious etiology. -Scattered mild bronchial wall thickening with mucus plugging likely related to mild acute bronchitis/bronchiolitis superimposed on chronic bronchitis/bronchiolitis -moderate to severe emphysematous changes with scattered subsegmental atelectasis and scarring -borderline enlarged prominent subcentimeter mediastinal and left hilar lymph nodes; likely reactive -mild mucosal thickening of distal transverse descending and sigmoid colon -mild mucosal thickening of the urinary bladder -mild mucosal thickening of the gastric atrium -bilateral indeterminate adrenal nodules Chest x-ray at this facility reveals bilateral pneumonia superimposed on chronic lung disease, left lung nodule Initial vital signs 168/76 BP, heart rate 130, respirations 23, temp 96.6? F, SpO2 86% on room air; improved with 2 L per nasal cannula Lab significant for leukocytosis with white count 33.5, Na 125, potassium 3.0, A ST 40, alk-phos 149, albumin 3.4 Blood cultures drawn 500 mL NS bolus 07/25 K is low. on Tele pt is seen and examined. Remains on 2l per nc Review of Systems Review of Systems: All systems reviewed & are unremarkable except as noted in HPI and below Exam Narrative: GENERAL: Chronically ill-appearing, in no acute distress. HEAD: Normocephalic, atraumatic. EYES: PERRLA. Conjunctivae clear. NOSE: Normal no drainage. Nasal cannula in place THROAT: Pharynx clear, no exudate. NECK: Trachea midline. No adenopathy, no masses. RESPIRATORY: Airway patent, respirations nonlabored. Diminished breath sounds throughout. CARDIOVASCULAR: Regular rate and rhythm. No edema. Peripheral pulses palpable BREASTS: Defer GASTROINTESTINAL: Abdomen is soft and nontender. No organomegaly. Bowel sounds normal in all quadrants. GENITOURINARY: Defer MUSCULOSKELETAL: Moves all extremities. No gross deformities. Moves all extremities well. No calf tenderness. SKIN: Warm, dry, normal color. NEURO: A&O X4. Speech clear PSYCHIATRIC: Normal interaction Objective Data Vital Signs Vital Signs: Vital Signs - 24 hr 07/27/25 12:34 07/27/25 12:35 07/27/25 12:39 Temperature Pulse Rate 130 H Respiratory Rate 23 H Blood Pressure 168/76 H Pulse Oximetry 86 L 94 95 Oxygen Delivery Room Air Nasal Cannula Nasal Cannula Oxygen Flow Rate 2 2 07/27/25 12:43 07/27/25 13:47 07/27/25 15:13 Temperature Pulse Rate 112 H 108 H Respiratory Rate 16 20 Blood Pressure 154/69 H Pulse Oximetry 95 100 Oxygen Delivery Nasal Cannula Oxygen Flow Rate 2 07/27/25 15:45 07/27/25 16:03 07/27/25 19:19 Temperature 96.6 F L Pulse Rate 104 H Respiratory Rate 18 Blood Pressure 148/69 H Pulse Oximetry 98 95 96 Oxygen Delivery Nasal Cannula Nasal Cannula Oxygen Flow Rate 2 1 07/27/25 19:21 07/27/25 19:29 07/27/25 20:00 Temperature Pulse Rate 88 92 Respiratory Rate 18 18 Blood Pressure Pulse Oximetry 90 Oxygen Delivery Nasal Cannula Oxygen Flow Rate 1 07/27/25 20:04 07/28/25 01:37 07/28/25 01:50 Temperature 97.2 F L Pulse Rate 97 85 88 Respiratory Rate 16 18 18 Blood Pressure 132/59 L Pulse Oximetry 90 Oxygen Delivery Oxygen Flow Rate 07/28/25 05:03 Temperature 97.9 F Pulse Rate 95 Respiratory Rate 18 Blood Pressure 155/75 H Pulse Oximetry 92 Oxygen Delivery Oxygen Flow Rate Intake/Output Intake/Output: Intake & Output 07/25/25 07/26/25 07/27/25 07/28/25 23:59 23:59 23:59 23:59 Intake Total 2340 1000 Balance 2340 1000 Meds/Results Medications: Active Medications Generic Name Dose Route Start Last Admin Trade Name Freq PRN Reason Stop Dose Admin Acetaminophen 650 mg 07/27/25 14:39 Acetaminophen 325 Mg Tablet PO Q4H PRN Mild Pain (1-3) or Fever Hydrocodone Bitart/Acetaminophen 1 tab 07/27/25 14:39 Hydrocodone/Acetaminophen (*Crx) 5-325 Mg Tablet PO Q4H PRN Pain Rated 4-6 Albuterol/Ipratropium 3 ml 07/27/25 20:00 07/28/25 01:37 Ipratropium 0.5 Mg/Albuterol Sulfate 2.5 Mg (Base) Ampul.Neb 3 Ml INHALATION 3 ml Q6HRT [facility] Administration Fluticasone Propionate 1 spray 07/27/25 18:55 07/27/25 19:55 Fluticasone Propionate 0.05% Na Spr 16 Gm Btl (*Bkc) NASAL Not Given BID SO[facility] Fluticasone/Umeclidinium/Vilanterol 1 puff 07/28/25 09:00 Fluticasone/Umeclidin/Vilanter 100-62.5-25 Mcg Ellipta INHALATION DAILY [facility] Guaifenesin 600 mg 07/28/25 09:00 Guaifenesin 12 Hr 600 Mg Tabcr PO Q12HR [facility] Hydrochlorothiazide 25 mg 07/28/25 09:00 Hydrochlorothiazide 25 Mg Tablet PO DAILY [facility] Ceftriaxone Sodium 1 gm/ 50 mls @ 100 mls/hr 07/27/25 13:00 07/27/25 18:32 Sodium Chloride IVPB Not Given Q24H [facility] Azithromycin 500 mg/ Sodium 250 mls @ 250 mls/hr 07/27/25 14:00 07/27/25 18:33 Chloride IVPB 07/30/25 14:59 Not Given Q24H [facility] Sodium Chloride 1,000 mls @ 125 mls/hr 07/27/25 14:40 07/28/25 03:35 Normal Saline Iv IV CONT 125 mls/hr .Q8H [facility] Administration Potassium Chloride 40 meq/ 520 mls @ 130 mls/hr 07/28/25 07:25 Sodium Chloride IVPB 07/28/25 11:24 ONCE ONE Metoprolol Tartrate 50 mg 07/28/25 09:00 Metoprolol Tartrate 50 Mg Tab PO DAILY [facility] Potassium Chloride 40 meq 07/28/25 09:00 Potassium Chloride 20 Meq Packet (For Liquid) PO 08/01/25 09:01 DAILY [facility] Promethazine HCl 12.5 mg 07/27/25 14:39 Promethazine Hcl 25 Mg/Ml Ampul IV PUSH Q6H PRN Nausea Tolterodine Tartrate 2 mg 07/28/25 09:00 Tolterodine Tartrate 2 Mg Tablet PO DAILY [facility] Radiology Results: ITS Impressions Chest X-Ray 07/27/25 13:05 Impression: Bilateral pneumonia superimposed on chronic lung disease. Left lung nodule. Chest CT with contrast recommended Labs Labs: Laboratory Results - last 24 hr 07/27/25 07/27/25 07/27/25 12:42 14:01 18:14 WBC 33.5 H RBC 4.44 Hgb 13.2 Hct 37.9 MCV 85.4 MCH 29.7 MCHC 34.8 RDW 14.4 Plt Count 447 H MPV 8.8 Immature Gran % (Auto) 1.0 H Neut % (Auto) 87.1 H Lymph % (Auto) 4.0 L [place] % (Auto) 7.5 Eos % (Auto) 0.2 Baso % (Auto) 0.2 Lymph # (Auto) 1.34 [place] # (Auto) 2.5 H Eos # (Auto) 0.1 Baso # (Auto) 0.1 Abs Immat Gran (auto) 0.35 H Absolute Neuts (auto) 29.1 H Absolute Nucleated RBC 0.000 Nucleated RBC % 0.0 Sodium 125 L Potassium 3.0 L Chloride 87 L Carbon Dioxide 30 Anion Gap 8 BUN 7 Creatinine 0.53 L Estim Creat Clear Calc 46 Estimated GFR > 60 Glucose 131 H Lactic Acid 1.4 Calcium 8.9 Total Bilirubin 0.5 AST 40 H ALT 32 Alkaline Phosphatase 149 H Total Protein 6.7 Albumin 3.4 L Nasal MRSA (PCR) Not detected Influenza A (RT-PCR) Influenza B (RT-PCR) RSV (RT-PCR) SARS-CoV-2 RNA (RT-PCR) 07/28/25 07/28/25 03:39 05:38 WBC 20.4 H RBC 4.10 L Hgb 12.1 Hct 35.9 L MCV 87.6 MCH 29.5 MCHC 33.7 RDW 14.7 H Plt Count 418 H MPV 9.3 Immature Gran % (Auto) Neut % (Auto) Lymph % (Auto) [place] % (Auto) Eos % (Auto) Baso % (Auto) Lymph # (Auto) [place] # (Auto) Eos # (Auto) Baso # (Auto) Abs Immat Gran (auto) Absolute Neuts (auto) Absolute Nucleated RBC Nucleated RBC % Sodium 130 L Potassium 2.6 L* Chloride 99 Carbon Dioxide 29 Anion Gap 2 L BUN 2 L D Creatinine 0.30 L Estim Creat Clear Calc 84 Estimated GFR > 60 Glucose 91 Lactic Acid Calcium 7.9 L Total Bilirubin AST ALT Alkaline Phosphatase Total Protein Albumin Nasal MRSA (PCR) Influenza A (RT-PCR) Negative Influenza B (RT-PCR) Negative RSV (RT-PCR) Negative SARS-CoV-2 RNA (RT-PCR) Negative Quality VTE Prophylaxis VTE prophylaxis: mechanical ordered
[2025-07-28] MEDS: POTASSIUM CHLORIDE INJ 40 MEQ in SODIUM CHLORIDE 0.9% IV 500 ML 130 MEQ IVPB (08:05)
[2025-07-28] MEDS: METOPROLOL TARTRATE 50 MG TAB PO (08:06)
[2025-07-28] MEDS: POTASSIUM CHLORIDE 20 MEQ PACKET (FOR LIQUID) 40 MEQ PO (08:07)
[2025-07-28] MEDS: TOLTERODINE TARTRATE 2 MG TABLET PO (08:07)
[2025-07-28] MEDS: guaiFENesin 12 HR 600 MG TABCR PO ×2 (08:07→20:45)
[2025-07-28 08:16] LABS: Magnesium 1.6 mg/dL (1.6-2.3)
--- NOTE | 2025-07-28 09:16 | P.CDI_ITS ---
CDI Query Clarification Request 1) Please review the clinical information below and clarify the respiratory diagnosis the patient is being treated for: * Hypoxia or hypoxemia without respiratory failure * Respiratory distress without respiratory failure * Acute respiratory failure with hypoxia * Acute respiratory failure with hypercapnia * Acute respiratory failure with hypoxia and hypercapnia * Acute on chronic respiratory failure with hypoxia * Acute on chronic respiratory failure with hypercapnia * Acute on chronic respiratory failure with hypoxia and hypercapnia * Acute respiratory distress syndrome (ARDS) * Chronic respiratory failure with hypoxia * Chronic respiratory failure with hypercapnia * Chronic respiratory failure with hypoxia and hypercapnia * Other explanation clinical findings, please specify * Unable to determine 2) Please specify status of COPD, if known. * Exacerbation of COPD * No exacerbation/stable COPD * Other * Unable to determine The medical chart reflects the following: Assessment and Plan (1) Pneumonia: Qualifiers: Laterality: bilateral Lung location: unspecified part of lung Pneumonia type: due to unspecified organism Qualified Code(s): J18.9 - Pneumonia, unspecified organism Code(s): J18.9 - Pneumonia, unspecified organism Status: Acute Assessment and Plan: Patient presents to ED with 2 week history of shortness of breath. History of COPD and current smoker. Chest x-ray at this facility reveals bilateral pneumonia superimposed on chronic lung disease, left lung nodule. See CT chest abdomen pelvis results in HPI - started on CAP tx azithromycin and ceftriaxone on 07/27 - MRSA PCR negative -viral PCR ordered -new supplemental O2 at 2 L nasal cannula required. Wean as tolerated -Tylenol 650 Q 4 p.r.n. -DuoNeb q.6 -Mucinex 600 mg q.12 (2) Hypoxia: Code(s): R09.02 - Hypoxemia Status: Acute Assessment and Plan: History of COPD and current smoker. O2 86% on room air on arrival. currently requiring supplemental O2 likely due to active pneumonia superimposed on emphysema -wean as tolerated -encourage IS use (3) COPD (chronic obstructive pulmonary disease): Qualifiers: COPD type: unspecified COPD Qualified Code(s): J44.9 - Chronic obstructive pulmonary disease, unspecified Code(s): J44.9 - Chronic obstructive pulmonary disease, unspecified Status: Chronic Assessment and Plan: Current smoker. Chest CT with moderate to severe emphysematous changes with scattered subsegmental atelectasis and scarring -albuterol inhaler and Breztri at home -DuoNebs while inpatient -smoking cessation information provided (4) HTN (hypertension): Qualifiers: Hypertension type: essential hypertension Qualified Code(s): I10 - Essential (primary) hypertension Code(s): I10 - Essential (primary) hypertension Status: Chronic Assessment and Plan: Continue hydrochlorothiazide and metoprolol (5) Hypokalemia: Code(s): E87.6 - Hypokalemia Status: Acute Assessment and Plan: - K is 2.6 today - will order iV replacement, add PO daily and will recheck K level once iv is infused - continue tele CXR: Impression: Bilateral pneumonia superimposed on chronic lung disease. Left lung nodule. Chest CT with contrast recommended <Mien Smith RN - Last Filed: 07/28/25 09:22> Clarified Diagnosis Clarified Diagnosis: Hypoxia or hypoxemia without respiratory failure <Anna Rivas APRN - Last Filed: 07/28/25 14:40>
[2025-07-28] MEDS: FLUTICASONE/UMECLIDIN/VILANTER 100-62.5-25 MCG ELLIPTA 1 PUFF INHALATION (10:15)
[2025-07-28] MEDS: cefTRIAXone 1 GM in SODIUM CHLORIDE 0.9% IV 50 ML 100 ML IVPB (14:31)
[2025-07-28] MEDS: AZITHROMYCIN IV 500 MG in SODIUM CHLORIDE 0.9% IV 250 ML IVPB (15:16)
[2025-07-28 18:13] LABS: Potassium 3.2 mmol/L (3.4-5.0)
[2025-07-29] VITALS (21 sets, daily range): BP systolic 141–172; BP diastolic 60–79; PULSE 68–100; RESP 12–20; TEMP 36.1–36.7; O2SAT 91–97
[2025-07-29] MEDS: IPRATROPIUM 0.5 MG/ALBUTEROL SULFATE 2.5 MG (BASE) AMPUL.NEB 3 ML INHALATION ×4 (01:29→20:22)
[2025-07-29] MEDS: SODIUM CHLORIDE 0.9% IV 1,000 ML 125 ML IV CONT (03:16)
[2025-07-29 06:12] LABS: Hematocrit 34.4 % (37.0-47.0); Hemoglobin 11.4 g/dL (12.0-15.0); Mean Corpuscular HGB Conc 33.1 g/dl (32-36); Mean Corpuscular Hemoglobin 29.6 pg (26-34); Mean Corpuscular Volume 89.4 fl (80-100); Platelet Count Result 370 k/mm3 (150-375); Red Blood Count 3.85 M/mm3 (4.2-5.4); White Blood Count 9.8 K/mm3 (4.5-10.0)
[2025-07-29 06:36] LABS: Anion Gap 3 mmol/L (4-12); Calcium 8.3 mg/dL (8.4-10.2); Carbon Dioxide 32 mmol/L (22-30); Chloride 92 mmol/L (98-107); Estimated CRCL calculation 89 ml/min; Estimated Glomerular Filt Rate > 60; Glucose 93 mg/dL (65-110); Potassium 2.7 mmol/L (3.4-5.0); Sodium 127 mmol/L (137-145)
[2025-07-29 06:40] LABS: Blood Urea Nitrogen < 2 mg/dL (7-17)
[2025-07-29] MEDS: POTASSIUM CHLORIDE 20 MEQ PACKET (FOR LIQUID) 40 MEQ PO ×2 (07:24→09:01)
[2025-07-29] MEDS: FLUTICASONE/UMECLIDIN/VILANTER 100-62.5-25 MCG ELLIPTA 1 PUFF INHALATION (07:39)
--- NOTE | 2025-07-29 07:59 | P.PNCROSS_ITS ---
Event Note Event Note Event Note: Nursing staff notified me that the patient has hypokalemia with potassium of 2. 7. 40 mEq potassium chloride tablet has been ordered now. The patient has daily potassium ordered that still needs to be given at 09:00. The patient had a magnesium level of 1.6 yesterday which although are labs states that this is a normal level is actually considered a low level in a patient that already has hypokalemia. A 4 g magnesium sulfate rider has been ordered. I requested a phosphate level be obtained. This returned as I was doing this documentation and so I ordered a 40 Julieth molar potassium phosphate rider. Patient will need repeat BMP this afternoon. I given directions to call daytime hospitalist with result if potassium less than 3.5.
--- NOTE | 2025-07-29 08:40 | PM.IMPN ---
Progress Note: A&P Assessment and Plan (1) Acute respiratory failure with hypoxia: Code(s): J96.01 - Acute respiratory failure with hypoxia Status: Acute Assessment and Plan: Upon arrival to the ED, patient was found to be 86% on room air and subsequently placed on 2 L of O2 with improvement in her O2 sats to 90%. - Oxygen supplementation: weaned to RA, maintain spo2 > 90 - Suspected cause: pneumonia, possible underlying COPD given patients smoking history (pack/day for 48 years) - see plan below (2) Pneumonia: Qualifiers: Laterality: bilateral Lung location: unspecified part of lung Pneumonia type: due to unspecified organism Qualified Code(s): J18.9 - Pneumonia, unspecified organism Code(s): J18.9 - Pneumonia, unspecified organism Status: Acute Assessment and Plan: Patient presents to ED with 2 week history of shortness of breath. History of COPD and current smoker. Chest abdomen pelvis from outside facility on 07/27: patchy ground glass and consolidative airspace opacities in the posterior. left upper and lower lobe concerning for multifocal airspace disease. See report for full impression. CXR: Bilateral pneumonia superimposed on chronic lung disease. Left lung nodule. - started on CAP tx: azithromycin ceftriaxone 07/27 - Viral PCR: negative for Flu/COVID/RSV - blood cultures obtained on 07/27: pending - continue IS and PEP therapy - Consider ordering legionella, mycoplasma and pneumococcal - Monitor vital signs, I&Os, neuro status and patient is a fall risk - Follow WBC, serum electrolytes, temperature curves and cultures (3) Hypokalemia: Code(s): E87.6 - Hypokalemia Status: Acute Assessment and Plan: K is 2.6 on admission, received supplementation and improved to 3.2 before again downtrending on am labs - started on daily potassium supplement of 40 meq po - continue tele - continue to monitor on cmp (4) Hyponatremia: Code(s): E87.1 - Hypo-osmolality and hyponatremia Status: Acute Assessment and Plan: Chronic hyponatremia dating back to 2021 with baseline being low 130s Na 125 on admission, started on NS without improvement - add urine osmolality, serum osmolality, and urine sodium - appears euvolemic rule out SIDAH 2/2 SCLC with chest xr: unremarkable adrenal insufficiency: cortisol and TSH ordered - no focal deficits on exam, situational/short term memory recall - nephrology consulted (5) COPD (chronic obstructive pulmonary disease): Qualifiers: COPD type: unspecified COPD Qualified Code(s): J44.9 - Chronic obstructive pulmonary disease, unspecified Code(s): J44.9 - Chronic obstructive pulmonary disease, unspecified Status: Chronic Assessment and Plan: Current smoker with 48 pack/yr history. No official COPD diagnosis. Chest CT with moderate to severe emphysematous changes with scattered subsegmental atelectasis and scarring -albuterol inhaler and Breztri at home -DuoNebs while inpatient -smoking cessation information provided (6) HTN (hypertension): Qualifiers: Hypertension type: essential hypertension Qualified Code(s): I10 - Essential (primary) hypertension Code(s): I10 - Essential (primary) hypertension Status: Chronic Assessment and Plan: Continue hydrochlorothiazide and metoprolol Time Spent With Patient Time with patient: 25 - 35 minutes Subjective Date/time seen: 07/29/25 08:40 Interval history: 75-year-old female with past medical history of COPD-baseline RA, current smoker, HTN presented to the ED on 07/27/2025 with complaints of shortness of breath over the last 2 weeks. Patient is pleasant sitting up comfortably on the side of bed. She denies any chest pain, shortness a breath and palpitations. During assessment patient is able to be weaned back to room air with stable saturations of 94%. She does endorse a cough, noting that she has difficulty clearing her secretions. She has no other complaints denying any nausea/vomiting/diarrhea and abdominal pain. Review of Systems Review of Systems: All systems reviewed & are unremarkable except as noted in HPI and below Exam Narrative: AF HR 78 RR 16 Spo2 91 RA BP 141/78 General: female in no acute respiratory distress who is nontoxic appearing, sitting up on side of bed HEENT: Normocephalic. Atraumatic. Extraocular movement intact. Sclera clear and anicteric. No facial asymmetry. Chest: Lungs are coarse to auscultation bilaterally, improved with cough. CV: Heart was regular rate and rhythm. Abd: Abdomen was soft. Nontender. Nondistended. Positive bowel sounds Ext: No clubbing, cyanosis, or edema. DP pulses bilaterally. Neuro: Patient is alert. Speech is clear. Objective Data Vital Signs Vital Signs: Vital Signs - 24 hr 07/28/25 09:53 07/28/25 12:00 07/28/25 13:36 Temperature Pulse Rate 83 71 Respiratory Rate 16 Blood Pressure Pulse Oximetry 94 Oxygen Delivery Nasal Cannula Oxygen Flow Rate 2 Fraction of Inspired Oxygen 28 07/28/25 13:36 07/28/25 13:40 07/28/25 14:00 Temperature 97.7 F Pulse Rate 77 84 76 Respiratory Rate 20 20 20 Blood Pressure 172/84 H Pulse Oximetry 90 Oxygen Delivery Oxygen Flow Rate Fraction of Inspired Oxygen 07/28/25 16:00 07/28/25 20:00 07/28/25 20:00 Temperature Pulse Rate 76 74 Respiratory Rate 20 Blood Pressure Pulse Oximetry 94 Oxygen Delivery Nasal Cannula Oxygen Flow Rate 2 Fraction of Inspired Oxygen 07/28/25 20:00 07/28/25 20:01 07/28/25 20:09 Temperature Pulse Rate 75 78 76 Respiratory Rate 20 20 Blood Pressure Pulse Oximetry 90 Oxygen Delivery Nasal Cannula Oxygen Flow Rate 2 Fraction of Inspired Oxygen 07/28/25 21:14 07/29/25 00:00 07/29/25 01:29 Temperature 97.5 F L Pulse Rate 81 71 87 Respiratory Rate 16 20 Blood Pressure 158/82 H Pulse Oximetry 94 Oxygen Delivery Oxygen Flow Rate Fraction of Inspired Oxygen 07/29/25 01:38 07/29/25 04:00 07/29/25 04:45 Temperature 98.1 F Pulse Rate 85 69 93 Respiratory Rate 20 18 Blood Pressure 172/79 H Pulse Oximetry 96 Oxygen Delivery Oxygen Flow Rate Fraction of Inspired Oxygen 07/29/25 07:39 07/29/25 07:40 07/29/25 07:44 Temperature Pulse Rate 84 86 Respiratory Rate 20 20 Blood Pressure Pulse Oximetry 94 Oxygen Delivery Nasal Cannula Oxygen Flow Rate 2 Fraction of Inspired Oxygen Intake/Output Intake/Output: Intake & Output 07/26/25 07/27/25 07/28/25 07/29/25 23:59 23:59 23:59 23:59 Intake Total 2340 3186 1520.8 Balance 2340 3186 1520.8 Meds/Results Medications: Active Medications Generic Name Dose Route Start Last Admin Trade Name Freq PRN Reason Stop Dose Admin Acetaminophen 650 mg 07/27/25 14:39 Acetaminophen 325 Mg Tablet PO Q4H PRN Mild Pain (1-3) or Fever Hydrocodone Bitart/Acetaminophen 1 tab 07/27/25 14:39 Hydrocodone/Acetaminophen (*Crx) 5-325 Mg Tablet PO Q4H PRN Pain Rated 4-6 Albuterol/Ipratropium 3 ml 07/27/25 20:00 07/29/25 07:36 Ipratropium 0.5 Mg/Albuterol Sulfate 2.5 Mg (Base) Ampul.Neb 3 Ml INHALATION 3 ml Q6HRT [facility] Administration Fluticasone Propionate 1 spray 07/27/25 18:55 07/28/25 17:31 Fluticasone Propionate 0.05% Na Spr 16 Gm Btl (*Bkc) NASAL Not Given BID SOF[facility] Fluticasone/Umeclidinium/Vilanterol 1 puff 07/28/25 09:00 07/29/25 07:39 Fluticasone/Umeclidin/Vilanter 100-62.5-25 Mcg Ellipta INHALATION 1 puff DAILY [facility] Administration Guaifenesin 600 mg 07/28/25 09:00 07/28/25 20:45 Guaifenesin 12 Hr 600 Mg Tabcr PO 600 mg Q12HR [facility] Administration Hydrochlorothiazide 25 mg 07/28/25 09:00 07/28/25 08:06 Hydrochlorothiazide 25 Mg Tablet PO 25 mg DAILY [facility] Administration Ceftriaxone Sodium 1 gm/ 50 mls @ 100 mls/hr 07/27/25 13:00 07/28/25 15:01 Sodium Chloride IVPB Infused Q24H [facility] Infusion Azithromycin 500 mg/ Sodium 250 mls @ 250 mls/hr 07/27/25 14:00 07/28/25 16:16 Chloride IVPB 07/30/25 14:59 Infused Q24H [facility] Infusion Sodium Chloride 1,000 mls @ 125 mls/hr 07/27/25 14:40 07/29/25 03:16 Normal Saline Iv IV CONT 125 mls/hr .Q8H [facility] Administration Potassium Phosphate 40 mmol/ 263.3333 mls @ 43.889 mls/hr 07/29/25 08:30 Sodium Chloride IVPB 07/29/25 14:29 ONCE ONE Metoprolol Tartrate 50 mg 07/28/25 09:00 07/28/25 08:06 Metoprolol Tartrate 50 Mg Tab PO 50 mg DAILY [facility] Administration Potassium Chloride 40 meq 07/28/25 09:00 07/28/25 08:07 Potassium Chloride 20 Meq Packet (For Liquid) PO 08/01/25 09:01 40 meq DAILY [facility] Administration Promethazine HCl 12.5 mg 07/27/25 14:39 Promethazine Hcl 25 Mg/Ml Ampul IV PUSH Q6H PRN Nausea Tolterodine Tartrate 2 mg 07/28/25 09:00 07/28/25 08:07 Tolterodine Tartrate 2 Mg Tablet PO 2 mg DAILY [facility] Administration Radiology Results: ITS Impressions Chest X-Ray 07/27/25 13:05 Impression: Bilateral pneumonia superimposed on chronic lung disease. Left lung nodule. Chest CT with contrast recommended Labs Labs: Laboratory Results - last 24 hr 07/28/25 07/29/25 17:55 05:34 WBC 9.8 RBC 3.85 L Hgb 11.4 L Hct 34.4 L MCV 89.4 MCH 29.6 MCHC 33.1 RDW 14.5 Plt Count 370 MPV 9.3 Sodium 127 L Potassium 3.2 L 2.7 L* Chloride 92 L Carbon Dioxide 32 H Anion Gap 3 L BUN < 2 L Creatinine 0.28 L Estim Creat Clear Calc 89 Estimated GFR > 60 Glucose 93 Calcium 8.3 L Phosphorus 2.0 L Quality VTE Prophylaxis VTE prophylaxis: mechanical ordered
[2025-07-29] MEDS: POTASSIUM PHOS,M-BASIC-D-BASIC 40 MMOL in SODIUM CHLORIDE 0.9% IV 250 ML 43.89 MMOL IVPB (09:00)
[2025-07-29] MEDS: METOPROLOL TARTRATE 50 MG TAB PO (09:01)
[2025-07-29] MEDS: TOLTERODINE TARTRATE 2 MG TABLET PO (09:02)
[2025-07-29] MEDS: guaiFENesin 12 HR 600 MG TABCR PO ×2 (09:02→20:48)
[2025-07-29 13:24] LABS: Anion Gap 3 mmol/L (4-12); Calcium 8.6 mg/dL (8.4-10.2); Carbon Dioxide 31 mmol/L (22-30); Chloride 91 mmol/L (98-107); Estimated CRCL calculation 82 ml/min; Estimated Glomerular Filt Rate > 60; Glucose 137 mg/dL (65-110); Potassium 4.8 mmol/L (3.4-5.0); Sodium 125 mmol/L (137-145)
[2025-07-29 13:26] LABS: Blood Urea Nitrogen < 2 mg/dL (7-17)
[2025-07-29] MEDS: cefTRIAXone 1 GM in SODIUM CHLORIDE 0.9% IV 50 ML 100 ML IVPB (17:16)
[2025-07-29 18:21] LABS: Thyroid Stimulating Hormone Reflex 1.310 uIU/mL (0.465-4.68)
[2025-07-29] MEDS: AZITHROMYCIN IV 500 MG in SODIUM CHLORIDE 0.9% IV 250 ML IVPB (18:26)
[2025-07-29] MEDS: SODIUM CHLORIDE NASAL GEL 14.1 GM 1 APPLIC NASAL (20:49)
[2025-07-30] VITALS (20 sets, daily range): BP systolic 152–167; BP diastolic 90–92; PULSE 69–109; RESP 14–20; TEMP 35.6–36.7; O2SAT 91–98
[2025-07-30] MEDS: IPRATROPIUM 0.5 MG/ALBUTEROL SULFATE 2.5 MG (BASE) AMPUL.NEB 3 ML INHALATION ×4 (02:16→20:39)
[2025-07-30 05:52] LABS: Hematocrit 36.6 % (37.0-47.0); Hemoglobin 12.1 g/dL (12.0-15.0); Mean Corpuscular HGB Conc 33.1 g/dl (32-36); Mean Corpuscular Hemoglobin 29.4 pg (26-34); Mean Corpuscular Volume 89.1 fl (80-100); Platelet Count Result 384 k/mm3 (150-375); Red Blood Count 4.11 M/mm3 (4.2-5.4); White Blood Count 11.0 K/mm3 (4.5-10.0)
[2025-07-30 06:14] LABS: Anion Gap 3 mmol/L (4-12); Blood Urea Nitrogen 3 mg/dL (7-17); Calcium 8.6 mg/dL (8.4-10.2); Carbon Dioxide 32 mmol/L (22-30); Chloride 91 mmol/L (98-107); Estimated CRCL calculation 80 ml/min; Estimated Glomerular Filt Rate > 60; Glucose 98 mg/dL (65-110); Magnesium 1.5 mg/dL (1.6-2.3); Potassium 3.5 mmol/L (3.4-5.0); Sodium 126 mmol/L (137-145)
--- NOTE | 2025-07-30 08:50 | PM.IMPN ---
Progress Note: A&P Assessment and Plan (1) Acute respiratory failure with hypoxia: Code(s): J96.01 - Acute respiratory failure with hypoxia Status: Acute Assessment and Plan: Upon arrival to the ED, patient was found to be 86% on room air and subsequently placed on 2 L of O2 with improvement in her O2 sats to 90%. - Oxygen supplementation: per RN placed back on 1L NC with stable saturations, wean as tolerated to maintain spo2 > 90 - Suspected cause: pneumonia, possible underlying COPD given patients smoking history (pack/day for 48 years) and emphsymatous changes on imaging - Will need a home o2 eval prior to discharge - see plan below (2) Pneumonia: Qualifiers: Laterality: bilateral Lung location: unspecified part of lung Pneumonia type: due to unspecified organism Qualified Code(s): J18.9 - Pneumonia, unspecified organism Code(s): J18.9 - Pneumonia, unspecified organism Status: Acute Assessment and Plan: Patient presents to ED with 2 week history of shortness of breath. History of COPD and current smoker. Chest abdomen pelvis from outside facility on 07/27: patchy ground glass and consolidative airspace opacities in the posterior. left upper and lower lobe concerning for multifocal airspace disease. See report for full impression. CXR: Bilateral pneumonia superimposed on chronic lung disease. Left lung nodule. - started on CAP tx: azithromycin ceftriaxone 07/27 - oxygen supplementation: 1L NC - Viral PCR: negative for Flu/COVID/RSV - blood cultures obtained on 07/27: NGTD - continue IS and PEP therapy - Consider ordering legionella, mycoplasma and pneumococcal - Monitor vital signs, I&Os, neuro status and patient is a fall risk - Follow WBC, serum electrolytes, temperature curves and cultures Worsening shortness of breath and requiring increased oxygen supplementation. Continue to have a wet though non productive cough. Continue pep therapy and increased mucinex dose. Remains on abx as above. (3) Hypokalemia: Code(s): E87.6 - Hypokalemia Status: Acute Assessment and Plan: K is 2.6 on admission, received supplementation and improved to 3.2 before again downtrending on am labs - started on daily potassium supplement of 40 meq po - continue tele - continue to monitor on cmp (4) Hyponatremia: Code(s): E87.1 - Hypo-osmolality and hyponatremia Status: Acute Assessment and Plan: Chronic hyponatremia dating back to 2021 with baseline being low 130s Na 125 on admission, started on NS without improvement - add urine osmolality, serum osmolality, and urine sodium - appears euvolemic rule out SIDAH 2/2 SCLC with chest xr: unremarkable adrenal insufficiency: cortisol and TSH WNL - no focal deficits on exam, situational/short term memory recall - nephrology consulted, appreciate recommendations (5) COPD (chronic obstructive pulmonary disease): Qualifiers: COPD type: unspecified COPD Qualified Code(s): J44.9 - Chronic obstructive pulmonary disease, unspecified Code(s): J44.9 - Chronic obstructive pulmonary disease, unspecified Status: Chronic Assessment and Plan: Current smoker with 48 pack/yr history. No official COPD diagnosis. Chest CT with moderate to severe emphysematous changes with scattered subsegmental atelectasis and scarring -albuterol inhaler and Breztri at home -DuoNebs while inpatient -smoking cessation information provided - recommend PCP to obtain PFTs in the outpatient setting - consider pulmonology consult if no improvement (6) HTN (hypertension): Qualifiers: Hypertension type: essential hypertension Qualified Code(s): I10 - Essential (primary) hypertension Code(s): I10 - Essential (primary) hypertension Status: Chronic Assessment and Plan: Continue hydrochlorothiazide and metoprolol Blood pressures reviewed and remain stable. Time Spent With Patient Time with patient: 25 - 35 minutes Subjective Date/time seen: 07/30/25 08:50 Interval history: 75-year-old female with past medical history of COPD-baseline RA, current smoker, HTN presented to the ED on 07/27/2025 with complaints of shortness of breath over the last 2 weeks. Patient is pleasant sitting up in bed. She states that she feels increasingly short of breath today especially with ambulation. She continues to endorse a wet nonproductive cough. She denies any chest pain and palpitations. She has no other complaints. Review of Systems Review of Systems: All systems reviewed & are unremarkable except as noted in HPI and below Exam Narrative: AF HR General: female in no acute respiratory distress who is nontoxic appearing, sitting up on side of bed HEENT: Normocephalic. Atraumatic. Extraocular movement intact. Sclera clear and anicteric. No facial asymmetry. Chest: Lungs are coarse to auscultation bilaterally, improved with cough. CV: Heart was regular rate and rhythm. Abd: Abdomen was soft. Nontender. Nondistended. Positive bowel sounds Ext: No clubbing, cyanosis, or edema. DP pulses bilaterally. Neuro: Patient is alert. Speech is clear. Objective Data Vital Signs Vital Signs: Vital Signs - 24 hr 07/29/25 09:01 07/29/25 12:00 07/29/25 13:45 Temperature 97.0 F L Pulse Rate 88 68 78 Respiratory Rate 16 Blood Pressure 141/78 H Pulse Oximetry 91 Oxygen Delivery Oxygen Flow Rate 07/29/25 15:37 07/29/25 15:42 07/29/25 16:00 Temperature Pulse Rate 80 82 77 Respiratory Rate 20 20 Blood Pressure Pulse Oximetry Oxygen Delivery Oxygen Flow Rate 07/29/25 20:00 07/29/25 20:00 07/29/25 20:23 Temperature Pulse Rate 100 92 Respiratory Rate 20 Blood Pressure Pulse Oximetry 95 Oxygen Delivery Nasal Cannula Oxygen Flow Rate 2 07/29/25 20:30 07/29/25 20:31 07/29/25 21:39 Temperature 97.5 F L Pulse Rate 88 88 Respiratory Rate 20 12 Blood Pressure 150/60 H Pulse Oximetry 97 93 Oxygen Delivery Nasal Cannula Oxygen Flow Rate 2 07/29/25 22:21 07/30/25 00:00 07/30/25 02:16 Temperature Pulse Rate 92 90 Respiratory Rate 20 Blood Pressure Pulse Oximetry 95 Oxygen Delivery Nasal Cannula Oxygen Flow Rate 1 07/30/25 02:22 07/30/25 04:00 07/30/25 06:00 Temperature 98.1 F Pulse Rate 89 78 91 Respiratory Rate 20 18 Blood Pressure 152/92 H Pulse Oximetry 94 Oxygen Delivery Oxygen Flow Rate 07/30/25 08:08 07/30/25 08:08 Temperature Pulse Rate 90 90 Respiratory Rate 14 14 Blood Pressure Pulse Oximetry 94 Oxygen Delivery Nasal Cannula Oxygen Flow Rate 1 Intake/Output Intake/Output: Intake & Output 07/27/25 07/28/25 07/29/25 07/30/25 23:59 23:59 23:59 23:59 Intake Total 2340 3186 2490.8 400 Balance 2340 3186 2490.8 400 Meds/Results Medications: Active Medications Generic Name Dose Route Start Last Admin Trade Name Freq PRN Reason Stop Dose Admin Acetaminophen 650 mg 07/27/25 14:39 Acetaminophen 325 Mg Tablet PO Q4H PRN Mild Pain (1-3) or Fever Hydrocodone Bitart/Acetaminophen 1 tab 07/27/25 14:39 Hydrocodone/Acetaminophen (*Crx) 5-325 Mg Tablet PO Q4H PRN Pain Rated 4-6 Albuterol/Ipratropium 3 ml 07/27/25 20:00 07/30/25 08:05 Ipratropium 0.5 Mg/Albuterol Sulfate 2.5 Mg (Base) Ampul.Neb 3 Ml INHALATION 3 ml Q6HRT SOFIA Administration Fluticasone Propionate 1 spray 07/27/25 18:55 07/29/25 19:34 Fluticasone Propionate 0.05% Na Spr 16 Gm Btl (*Bkc) NASAL Not Given BID SOFIA Fluticasone/Umeclidinium/Vilanterol 1 puff 07/28/25 09:00 07/29/25 07:39 Fluticasone/Umeclidin/Vilanter 100-62.5-25 Mcg Ellipta INHALATION 1 puff DAILY SOFIA Administration Guaifenesin 600 mg 07/28/25 09:00 07/29/25 20:48 Guaifenesin 12 Hr 600 Mg Tabcr PO 600 mg Q12HR SOFIA Administration Hydrochlorothiazide 25 mg 07/28/25 09:00 07/29/25 09:02 Hydrochlorothiazide 25 Mg Tablet PO 25 mg DAILY SOFIA Administration Ceftriaxone Sodium 1 gm/ 50 mls @ 100 mls/hr 07/27/25 13:00 07/29/25 17:46 Sodium Chloride IVPB Infused Q24H SOFIA Infusion Azithromycin 500 mg/ Sodium 250 mls @ 250 mls/hr 07/27/25 14:00 07/29/25 19:26 Chloride IVPB 07/30/25 18:59 Infused Q24H SOFIA Infusion Metoprolol Tartrate 50 mg 07/28/25 09:00 07/29/25 09:01 Metoprolol Tartrate 50 Mg Tab PO 50 mg DAILY SOFIA Administration Potassium Chloride 40 meq 07/28/25 09:00 07/29/25 09:01 Potassium Chloride 20 Meq Packet (For Liquid) PO 08/01/25 09:01 40 meq DAILY SOFIA Administration Promethazine HCl 12.5 mg 07/27/25 14:39 Promethazine Hcl 25 Mg/Ml Ampul IV PUSH Q6H PRN Nausea Sodium Chloride 1 applic 07/29/25 21:00 07/29/25 20:49 Sodium Chloride Nasal Gel 14.1 Gm NASAL 1 applic HS SOFIA Administration Tolterodine Tartrate 2 mg 07/28/25 09:00 07/29/25 09:02 Tolterodine Tartrate 2 Mg Tablet PO 2 mg DAILY SOFIA Administration Radiology Results: ITS Impressions Chest X-Ray 07/27/25 13:05 Impression: Bilateral pneumonia superimposed on chronic lung disease. Left lung nodule. Chest CT with contrast recommended Labs Labs: Laboratory Results - last 24 hr 07/29/25 07/29/25 07/29/25 05:34 12:43 12:51 WBC RBC Hgb Hct MCV MCH MCHC RDW Plt Count MPV Sodium 125 L Potassium 4.8 Chloride 91 L Carbon Dioxide 31 H Anion Gap 3 L BUN < 2 L Creatinine 0.31 L Estim Creat Clear Calc 82 Estimated GFR > 60 Glucose 137 H Calcium 8.6 Magnesium TSH (Reflex) 1.310 Random Cortisol 18.00 07/30/25 05:05 WBC 11.0 H RBC 4.11 L Hgb 12.1 Hct 36.6 L MCV 89.1 MCH 29.4 MCHC 33.1 RDW 14.6 H Plt Count 384 H MPV 9.4 Sodium 126 L Potassium 3.5 Chloride 91 L Carbon Dioxide 32 H Anion Gap 3 L BUN 3 L Creatinine 0.32 L Estim Creat Clear Calc 80 Estimated GFR > 60 Glucose 98 Calcium 8.6 Magnesium 1.5 L TSH (Reflex) Random Cortisol Quality VTE Prophylaxis VTE prophylaxis: mechanical ordered
[2025-07-30] MEDS: METOPROLOL TARTRATE 50 MG TAB PO (09:24)
[2025-07-30] MEDS: POTASSIUM CHLORIDE 20 MEQ PACKET (FOR LIQUID) 40 MEQ PO (09:24)
[2025-07-30] MEDS: FLUTICASONE/UMECLIDIN/VILANTER 100-62.5-25 MCG ELLIPTA 1 PUFF INHALATION (09:26)
[2025-07-30] MEDS: TOLTERODINE TARTRATE 2 MG TABLET PO (09:27)
[2025-07-30] MEDS: guaiFENesin 12 HR 600 MG TABCR PO (09:27)
[2025-07-30] MEDS: FLUTICASONE PROPIONATE 0.05% NA SPR 16 GM BTL (*BKC) 1 SPRAY NASAL ×2 (09:28→16:45)
--- NOTE | 2025-07-30 13:38 | P.CONNP_ITS ---
Assessment and Plan Assessment and plan (1) Hyponatremia: Code(s): E87.1 - Hypo-osmolality and hyponatremia Status: Acute Assessment and Plan: * acute on chronic * sodium has running around 126 - 132 since 2021 * multiple risk factors for low sodium: * known lung disease/COPD * current smoker * pneumonia (on this admission) * HCTZ use * other(?) * TSH and cortisol okay * check urine studies, SPEP/UPEP with immunofixation and follow-up on serum/urine osmolality * consider fluid restriction and salt tabs * follow trend of repeat sodium levels (2) Acute respiratory failure with hypoxia: Code(s): J96.01 - Acute respiratory failure with hypoxia Status: Acute Assessment and Plan: * improving * as noted on presentation to ER * 86% on room air * placed on 2 L of O2 with improvement in her O2 sats to 90% * Viral PCR: negative for Flu/COVID/RSV * presumed to be secondary to pneumonia on top of known COPD * continue current therapy (3) Pneumonia: Qualifiers: Laterality: bilateral Lung location: unspecified part of lung P neumonia type: due to unspecified organism Qualified Code(s): J18.9 - Pneumonia, unspecified organism Code(s): J18.9 - Pneumonia, unspecified organism Status: Acute Assessment and Plan: * clinical improvement noted * as suggested by admission imaging: * CT C/A/P with patchy ground glass and consolidative airspace opacities in the posterior left upper and lower lobe concerning for multifocal airspace disease. * CXR: Bilateral pneumonia superimposed on chronic lung disease; left lung nodule * on antibiotics * culture data noted (negative to date) (4) Hypokalemia: Code(s): E87.6 - Hypokalemia Status: Acute Assessment and Plan: * stable * noted on admission * stable on scheduled supplementation * follow K+ levels (5) HTN (hypertension): Qualifiers: Hypertension type: essential hypertension Qualified Code(s): I10 - Essential (primary) hypertension Code(s): I10 - Essential (primary) hypertension Status: Chronic Assessment and Plan: * reasonable control * follow trend of hemodynamics * hold HCTZ (6) COPD (chronic obstructive pulmonary disease): Qualifiers: COPD type: unspecified COPD Qualified Code(s): J44.9 - Chronic obstructive pulmonary disease, unspecified Code(s): J44.9 - Chronic obstructive pulmonary disease, unspecified Status: Chronic Assessment and Plan: * suspected given evidence to date: * current smoker with 48 pack/yr history * moderate to severe emphysematous changes on CT imaging * nebulizer treatments while hospitalized * continue inhalers I will continue to follow the patient with you while he remains hospitalized and make further recommendations as deemed necessary. Thank you for allowing me to participate in the care of this patient. L History of Present Illness Reason for Consult Consult date: 07/30/25 Reason for consult: hyponatremia Chief Complaint Chief complaint: pneumonia History of Present Illness Narrative: The patient is a 75-year-old female with a past medical history as outlined below who presented to [facility] Emergency Room with complaints of shortness of breath. The shortness of breath at has apparently been going on for last 2 weeks and has progressively worsened. Initially, the patient thought the symptoms were due the fact that she ran out of her inhalers. In association with her shortness of breath, she has a dry cough but this has been somewhat of a chronic issue even at baseline. She does note that her shortness of breath is somewhat worse with any type of exertional activities. She did discuss the situation with her primary care physician and outpatient CT scan was done for further evaluation of this issue but by the time of her presentation to the ER, she was unclear of the results. In any case, given her worsening shortness of breath, she presented to the ER for further assessment. Workup and evaluation emergency room demonstrated the patient be hemodynamically stable and afebrile but she was hypoxic with an O2 saturation of 86% on room air. 2 L of supplemental oxygen was applied and her oxygen saturations improved to 90%. Subsequent testing noted a white blood cell count of 33.5, hemoglobin 13.2, platelet count force 47, sodium 125, potassium 3.0, chloride 87, bicarb 30 BUN 7 creatinine 0.53 with a glucose of 131, calcium 8.9, AST 40 alkaline phosphatase 149, albumin 3.4, and a lactic acid of 1.4. Her chest x-ray demonstrated COPD changes and bilateral pneumonia. Given these findings, she was initiated on IV fluids and IV antibiotics after appropriate cultures were obtained and subsequently admitted to the hospital for further evaluation and therapy. Since her admission, the official report of her CT imaging done at the outside hospital was obtained which demonstrated patchy ground-glass and consolidative airspace opacities the left upper and left lower lobe concerning for multifocal airspace disease or inflammatory/infectious etiology with scattered bronchial wall thickening with mucus plugging likely related to mild acute bronchitis /bronchiolitis, and moderate to severe emphysematous changes. She was continued on supplemental oxygen, nebulizer treatments, her home inhalers, and antibiotics and her overall respiratory status has significantly improved. Unfortunately, her sodium level has been slowly declining since her admission. Renal consultation was requested due to her acute on chronic hyponatremia. from review her records, it would seem the patient's baseline sodium seems to run around 126-132 millimoles per L since 2021. In spite of this chronic issue and even in conjunction with her acute decline in her sodium level while she has been here in the hospital, she appears to be completely asymptomatic. She does not recall ever being told that she had any issues or problems her sodium level but she freely admits that it might be possible as she was told about it and just does not recall. In spite of the fact that her respiratory status has been improving, her sodium level has remained on the lower end of normal at 1:22 a.m. millimoles per L. Currently, at the time my evaluation, she appears to be in no acute distress. Review of Systems 2 Review of Systems: As per HPI. [facility] Past Medical History Medical History Sinus congestion Urge incontinence Hyponatremia COPD (chronic obstructive pulmonary disease) HTN (hypertension) Surgical History Surgical History History of hysterectomy (~1991) Family History Family History Father , 82 Kidney failure Hypertension Cancer Mother , 75 Liver failure Cancer Social History Social History Social History: Patient drinks 4 cups of caffeine daily Smoking packs per day: 1 Smoking cigarettes per day: 20.0 Years smoked: 40 Smoking pack-years: 40.00 Smoking status: Current every day smoker Tobacco type: cigarettes Alcohol intake: current Drinks per week: 8 Alcohol use details: Patient drinks 4 beers per day Substance use: never Substance use type: does not use Do You Feel Safe in your Home?: Yes Lack of Transportation: No Lack of Food: Never True Current Housing: I Have Housing Concerned About Future Housing: No Difficulty Paying Gas/Electric Bills: No Difficulty Paying for Meds: No Currently Unemployed: No Education: Decline to Answer Difficulty w/ Childcare or Family Care: No Spiritual care concerns: No Meds Home Medications and Allergies Home Medications ?Medication ?Instructions ?Recorded ?Confirmed ?Type alendronate 70 mg tablet See Rx Instructions .Route 0 06/23/25 07/27/25 Rx .COMPLEX #12 tabs fluticasone propionate 50 1 spray intranasal BID #48 g lloyd 06/23/25 07/27/25 Rx mcg/actuation nasal spray,suspension (Flonase Allergy Relief) metoprolol tartrate 50 See Rx Instructions .Route 0 06/23/25 07/27/25 Rx mg-hydrochlorothiazide 25 mg tablet .COMPLEX #90 tabs tolterodine 2 mg tablet 2 mg PO DAILY #90 tabs 06/2307/27/25 Rx albuterol sulfate 90 mcg/actuation See Rx Instructions .Route 07/17/25 07/27/25 Rx aerosol inhaler .COMPLEX #8.5 ea budesonide 160 mcg-glycopyr 9 2 inh inhalation BID #32 .1 grams 07/17/25 07/27/25 Rx mcg-formot 4.8 mcg/actuation HFA inhaler (Breztri Aerosphere) amoxicillin 875 mg-potassium 1 tablet PO Q12H #3 tabs 08/01/25 Rx clavulanate 125 mg tablet sodium chloride 1,000 mg soluble 1,000 mg PO BID #60 t abs 08/01/25 Rx tablet Allergies Allergy/AdvReac Type Severity Reaction Status Date / Time No Known Allergies Allergy Verified 07/27/25 15:49 Vital Signs Vital Signs Temp Pulse Resp BP Pulse Ox O2 Del Method O2 Flow Rate 07/30/25 13:39 98 Nasal Cannula 1 07/30/25 13:36 69 14 98 Nasal Cannula 1 07/30/25 12:00 78 07/30/25 09:30 109 H 92 Nasal Cannula 1.5 07/30/25 09:24 109 H 07/30/25 09:15 88 14 07/30/25 08:08 90 14 07/30/25 08:08 90 14 94 Nasal Cannula 1 07/30/25 06:00 98.1 F 91 18 152/92 H 94 07/30/25 04:00 78 07/30/25 02:22 89 20 07/30/25 02:16 90 20 07/30/25 00:00 92 07/29/25 22:21 95 Nasal Cannula 1 07/29/25 21:39 97.5 F L 88 12 150/60 H 93 07/29/25 20:31 88 20 07/29/25 20:30 97 Nasal Cannula 2 07/29/25 20:23 92 20 07/29/25 20:00 100 07/29/25 20:00 95 Nasal Cannula 2 Exam 2 Narrative: GENERAL APPEARANCE: thin and elderly female in no acute distress HEENT: normocephalic, atraumatic, normal conjunctiva and sclera, nares patient NECK: no lymphadenopathy, thyromegaly, or JVD MOUTH: normal lips, teeth, and gums CARDIOVASCULAR: RRR, normal S1 and S2, no rub detected RESPIRATORY: coarse breath sounds ABDOMEN: soft, nontender, nondistended, positive bowel sounds present EXTREMITIES: no evidence of cyanosis, clubbing, or edema NEUROLOGICAL: alert and oriented x 3; CN II - XII intact bilaterally; no focal deficits noted Results Lab Results 08/01/25 05:55 08/01/25 05:55 Lab results: Most recent lab results Calcium 8.6 mg/dL (8.4-10.2) 07/30/25 05:05 Phosphorus 2.0 mg/dL (2.5-4.5) L 07/29/25 05:34 Magnesium 1.5 mg/dL (1.6-2.3) L 07/30/25 05:05
[2025-07-30] MEDS: cefTRIAXone 1 GM in SODIUM CHLORIDE 0.9% IV 50 ML 100 ML IVPB (16:44)
[2025-07-30] MEDS: AZITHROMYCIN IV 500 MG in SODIUM CHLORIDE 0.9% IV 250 ML IVPB (17:24)
[2025-07-30] MEDS: guaiFENesin 12 HR 600 MG TABCR 1200 MG PO (21:29)
[2025-07-30] MEDS: SODIUM CHLORIDE NASAL GEL 14.1 GM 1 APPLIC NASAL (21:30)
[2025-07-31] VITALS (16 sets, daily range): BP systolic 145–158; BP diastolic 74–91; PULSE 75–109; RESP 16–20; TEMP 36.4–37.2; O2SAT 91–97
[2025-07-31] MEDS: IPRATROPIUM 0.5 MG/ALBUTEROL SULFATE 2.5 MG (BASE) AMPUL.NEB 3 ML INHALATION ×4 (02:35→20:56)
[2025-07-31 06:20] LABS: Hematocrit 36.0 % (37.0-47.0); Hemoglobin 12.2 g/dL (12.0-15.0); Mean Corpuscular HGB Conc 33.9 g/dl (32-36); Mean Corpuscular Hemoglobin 29.8 pg (26-34); Mean Corpuscular Volume 88.0 fl (80-100); Platelet Count Result 384 k/mm3 (150-375); Red Blood Count 4.09 M/mm3 (4.2-5.4); White Blood Count 9.1 K/mm3 (4.5-10.0)
[2025-07-31 06:43] LABS: Anion Gap 3 mmol/L (4-12); Blood Urea Nitrogen 3 mg/dL (7-17); Calcium 8.8 mg/dL (8.4-10.2); Carbon Dioxide 30 mmol/L (22-30); Chloride 89 mmol/L (98-107); Estimated CRCL calculation 78 ml/min; Estimated Glomerular Filt Rate > 60; Glucose 102 mg/dL (65-110); Potassium 3.4 mmol/L (3.4-5.0); Sodium 122 mmol/L (137-145)
[2025-07-31 07:04] LABS: Hematocrit 35.2 % (37.0-47.0); Hemoglobin 11.9 g/dL (12.0-15.0); Immature Granulocyte Percent A 0.4 % (0-0.5); Lymphocytes Absolute Auto 1.45 K/mm3 (0.9-3.2); Mean Corpuscular HGB Conc 33.8 g/dl (32-36); Mean Corpuscular Hemoglobin 29.5 pg (26-34); Mean Corpuscular Volume 87.3 fl (80-100); Nucleated Red Blood Cells Absolute Auto 0.000 K/mm3 (0.0-0.012); Nucleated Red Blood Cells Perc 0.0 % (0.0-0.2); Platelet Count Result 381 k/mm3 (150-375); Red Blood Count 4.03 M/mm3 (4.2-5.4); White Blood Count 9.4 K/mm3 (4.5-10.0)
[2025-07-31] MEDS: FLUTICASONE/UMECLIDIN/VILANTER 100-62.5-25 MCG ELLIPTA 1 PUFF INHALATION (07:18)
[2025-07-31 07:21] LABS: Alanine Aminotransferase 26 U/L (6-35); Albumin Level 3.2 g/dL (3.5-5.1); Alkaline Phosphatase 100 U/L (38-126); Anion Gap 5 mmol/L (4-12); Aspartate Amino Transferase 33 U/L (14-36); Bilirubin,Total 0.7 mg/dL (0.2-1.3); Blood Urea Nitrogen 3 mg/dL (7-17); Calcium 8.7 mg/dL (8.4-10.2); Carbon Dioxide 28 mmol/L (22-30); Chloride 89 mmol/L (98-107); Estimated CRCL calculation 78 ml/min; Estimated Glomerular Filt Rate > 60; Glucose 99 mg/dL (65-110); Potassium 3.4 mmol/L (3.4-5.0); Sodium 122 mmol/L (137-145); Total Protein 6.2 g/dL (6.3-8.2)
[2025-07-31] MEDS: POTASSIUM CHLORIDE 20 MEQ PACKET (FOR LIQUID) 40 MEQ PO (08:41)
[2025-07-31] MEDS: TOLTERODINE TARTRATE 2 MG TABLET PO (08:41)
[2025-07-31] MEDS: METOPROLOL TARTRATE 50 MG TAB PO (08:42)
[2025-07-31] MEDS: guaiFENesin 12 HR 600 MG TABCR 1200 MG PO ×2 (08:42→22:02)
[2025-07-31] MEDS: FLUTICASONE PROPIONATE 0.05% NA SPR 16 GM BTL (*BKC) 1 SPRAY NASAL ×2 (08:43→17:01)
--- NOTE | 2025-07-31 08:51 | P.PNIM_ITS ---
Progress Note: A&P Assessment and Plan (1) Acute respiratory failure with hypoxia: Code(s): J96.01 - Acute respiratory failure with hypoxia Status: Acute Assessment and Plan: Upon arrival to the ED, patient was found to be 86% on room air and subsequently placed on 2 L of O2 with improvement in her O2 sats to 90%. - Oxygen supplementation: weaned to room air with stable saturations, maintain spo2 > 90 - Suspected cause: pneumonia, possible underlying COPD given patients smoking history (pack/day for 48 years) and emphsymatous changes on imaging - Will need a home o2 eval prior to discharge - see plan below (2) Pneumonia: Qualifiers: Laterality: bilateral Lung location: unspecified part of lung Pneumonia type: due to unspecified organism Qualified Code(s): J18.9 - Pneumonia, unspecified organism Code(s): J18.9 - Pneumonia, unspecified organism Status: Acute Assessment and Plan: Patient presents to ED with 2 week history of shortness of breath. History of COPD and current smoker. Chest abdomen pelvis from outside facility on 07/27: patchy ground glass and consolidative airspace opacities in the posterior. left upper and lower lobe concerning for multifocal airspace disease. See report for full impression. CXR: Bilateral pneumonia superimposed on chronic lung disease. Left lung nodule. - started on CAP tx: azithromycin ceftriaxone 07/27, transitioned to Augmentin on 07/31 to complete course - oxygen supplementation: 1L NC - Viral PCR: negative for Flu/COVID/RSV - blood cultures obtained on 07/27: NGTD - continue IS and PEP therapy - Consider ordering legionella, mycoplasma and pneumococcal - Monitor vital signs, I&Os, neuro status and patient is a fall risk - Follow WBC, serum electrolytes, temperature curves and cultures Continue pep therapy and increased Mucinex dose. Transitioned to oral antibiotics to complete the course. (3) Hyponatremia: Code(s): E87.1 - Hypo-osmolality and hyponatremia Status: Acute Assessment and Plan: Chronic hyponatremia dating back to 2021 with baseline being low 130s Na 125 on admission, started on NS without improvement - add urine osmolality, serum osmolality, and urine sodium - appears euvolemic rule out SIDAH 2/2 SCLC with chest xr: unremarkable adrenal insufficiency: cortisol and TSH WNL - no focal deficits on exam, situational/short term memory recall - nephrology consulted, appreciate recommendations started on salt tabs twice a day and a fluid restriction (4) Hypokalemia: Code(s): E87.6 - Hypokalemia Status: Acute Assessment and Plan: K is 2.6 on admission, received supplementation and improved to 3.2 before again downtrending on am labs - started on daily potassium supplement of 40 meq po - continue tele - continue to monitor on cmp Resolved. (5) COPD (chronic obstructive pulmonary disease): Qualifiers: COPD type: unspecified COPD Qualified Code(s): J44.9 - Chronic obstructive pulmonary disease, unspecified Code(s): J44.9 - Chronic obstructive pulmonary disease, unspecified Status: Chronic Assessment and Plan: Current smoker with 48 pack/yr history. No official COPD diagnosis. Chest CT with moderate to severe emphysematous changes with scattered subsegmental atelectasis and scarring -albuterol inhaler and Breztri at home -DuoNebs while inpatient -smoking cessation information provided - recommend PCP to obtain PFTs in the outpatient setting - consider pulmonology consult if no improvement (6) HTN (hypertension): Qualifiers: Hypertension type: essential hypertension Qualified Code(s): I10 - Essential (primary) hypertension Code(s): I10 - Essential (primary) hypertension Status: Chronic Assessment and Plan: Continue hydrochlorothiazide and metoprolol Blood pressures reviewed and remain stable. Time Spent With Patient Time with patient: 25 - 35 minutes Subjective Date/time seen: 07/31/25 08:51 Interval history: 75-year-old female with past medical history of COPD-baseline RA, current smoker, HTN presented to the ED on 07/27/2025 with complaints of shortness of breath over the last 2 weeks. Patient is pleasant sitting comfortably in bed with family at bedside. She states that her shortness of breath and cough have much improved today. During assessment was able to wean patient back to room air with stable saturations. P atient has no complaints at this time denying chest pain, shortness a breath, palpitations, nausea/vomiting, and abdominal pain. Review of Systems Review of Systems: All systems reviewed & are unremarkable except as noted in HPI and below Exam Narrative: AF HR 82 RR 18 Spo2 92 RA BP 150/77 General: female in no acute respiratory distress who is nontoxic appearing, sitting up on side of bed HEENT: Normocephalic. Atraumatic. Extraocular movement intact. Sclera clear and anicteric. No facial asymmetry. Chest: Lungs are slightly diminished to auscultation bilaterally CV: Heart was regular rate and rhythm. Abd: Abdomen was soft. Nontender. Nondistended. Positive bowel sounds Ext: No clubbing, cyanosis, or edema. DP pulses bilaterally. Neuro: Patient is alert. Speech is clear. Objective Data Vital Signs Vital Signs: Vital Signs - 24 hr 07/30/25 09:15 07/30/25 09:24 07/30/25 09:30 Temperature Pulse Rate 88 109 H 109 H Respiratory Rate 14 Blood Pressure Pulse Oximetry 92 Oxygen Delivery Nasal Cannula Oxygen Flow Rate 1.5 Fraction of Inspired Oxygen 07/30/25 12:00 07/30/25 13:36 07/30/25 13:39 Temperature Pulse Rate 78 69 Respiratory Rate 14 Blood Pressure Pulse Oximetry 98 Oxygen Delivery Nasal Cannula Oxygen Flow Rate 1 Fraction of Inspired Oxygen 07/30/25 13:43 07/30/25 14:00 07/30/25 14:06 Temperature 96.1 F L Pulse Rate 71 77 72 Respiratory Rate 15 16 Blood Pressure 167/90 H Pulse Oximetry 91 92 Oxygen Delivery Oxygen Flow Rate Fraction of Inspired Oxygen 21 07/30/25 16:00 07/30/25 20:00 07/30/25 20:00 Temperature Pulse Rate 78 81 78 Respiratory Rate 16 Blood Pressure Pulse Oximetry 97 Oxygen Delivery Nasal Cannula Oxygen Flow Rate 2 Fraction of Inspired Oxygen 21 07/30/25 20:05 07/30/25 20:39 07/30/25 20:43 Temperature 98.1 F Pulse Rate 80 81 81 Respiratory Rate 20 16 16 Blood Pressure 160/90 H Pulse Oximetry 96 97 Oxygen Delivery Nasal Cannula Oxygen Flow Rate 1 Fraction of Inspired Oxygen 07/31/25 00:00 07/31/25 02:35 07/31/25 04:00 Temperature Pulse Rate 89 84 109 H Respiratory Rate 18 Blood Pressure Pulse Oximetry Oxygen Delivery Oxygen Flow Rate Fraction of Inspired Oxygen 07/31/25 04:15 07/31/25 07:19 07/31/25 08:42 Temperature 98.1 F Pulse Rate 93 82 102 H Respiratory Rate 20 16 Blood Pressure 158/91 H Pulse Oximetry 91 Oxygen Delivery Oxygen Flow Rate Fraction of Inspired Oxygen Intake/Output Intake/Output: Intake & Output 07/28/25 07/29/25 07/30/25 07/31/25 23:59 23:59 23:59 23:59 Intake Total 3186 2490.8 2507 550 Output Total 300 Balance 3186 2490.8 2207 550 Meds/Results Medications: Active Medications Generic Name Dose Route Start Last Admin Trade Name Freq PRN Reason Stop Dose Admin Acetaminophen 650 mg 07/27/25 14:39 Acetaminophen 325 Mg Tablet PO Q4H PRN Mild Pain (1-3) or Fever Hydrocodone Bitart/Acetaminophen 1 tab 07/27/25 14:39 Hydrocodone/Acetaminophen (*Crx) 5-325 Mg Tablet PO Q4H PRN Pain Rated 4-6 Albuterol/Ipratropium 3 ml 07/27/25 20:00 07/31/25 07:17 Ipratropium 0.5 Mg/Albuterol Sulfate 2.5 Mg (Base) Ampul.Neb 3 Ml INHALATION 3 ml Q6HRT SOFIA Administration Fluticasone Propionate 1 spray 07/27/25 18:55 07/31/25 08:43 Fluticasone Propionate 0.05% Na Spr 16 Gm Btl (*Bkc) NASAL 1 spray BID SOFIA Administration Fluticasone/Umeclidinium/Vilanterol 1 puff 07/28/25 09:00 07/31/25 07:18 Fluticasone/Umeclidin/Vilanter 100-62.5-25 Mcg Ellipta INHALATION 1 puff DAILY SOFIA Administration Guaifenesin 1,200 mg 07/30/25 21:00 07/31/25 08:42 Guaifenesin 12 Hr 600 Mg Tabcr PO 1,200 mg Q12HR SOFIA Administration Hydrochlorothiazide 25 mg 07/28/25 09:00 07/31/25 08:42 Hydrochlorothiazide 25 Mg Tablet PO 25 mg DAILY SOFIA Administration Ceftriaxone Sodium 1 gm/ 50 mls @ 100 mls/hr 07/27/25 13:00 07/30/25 16:44 Sodium Chloride IVPB 100 mls/hr Q24H SOFIA Administration Metoprolol Tartrate 50 mg 07/28/25 09:00 07/31/25 08:42 Metoprolol Tartrate 50 Mg Tab PO 50 mg DAILY SOFIA Administration Potassium Chloride 40 meq 07/28/25 09:00 07/31/25 08:41 Potassium Chloride 20 Meq Packet (For Liquid) PO 08/01/25 09:01 40 meq DAILY SOFIA Administration Promethazine HCl 12.5 mg 07/27/25 14:39 Promethazine Hcl 25 Mg/Ml Ampul IV PUSH Q6H PRN Nausea Sodium Chloride 1 applic 07/29/25 21:00 07/30/25 21:30 Sodium Chloride Nasal Gel 14.1 Gm NASAL 1 applic HS SOFIA Administration Tolterodine Tartrate 2 mg 07/28/25 09:00 07/31/25 08:41 Tolterodine Tartrate 2 Mg Tablet PO 2 mg DAILY SOFIA Administration Radiology Results: ITS Impressions Chest X-Ray 07/27/25 13:05 Impression: Bilateral pneumonia superimposed on chronic lung disease. Left lung nodule. Chest CT with contrast recommended Labs Labs: Laboratory Results - last 24 hr 07/31/25 07/31/25 05:47 06:42 WBC 9.1 9.4 RBC 4.09 L 4.03 L Hgb 12.2 11.9 L Hct 36.0 L 35.2 L MCV 88.0 87.3 MCH 29.8 29.5 MCHC 33.9 33.8 RDW 14.3 14.3 Plt Count 384 H 381 H MPV 9.3 9.3 Immature Gran % (Auto) 0.4 Neut % (Auto) 74.3 H Lymph % (Auto) 15.5 L [place] % (Auto) 8.5 Eos % (Auto) 0.7 Baso % (Auto) 0.6 Lymph # (Auto) 1.45 [place] # (Auto) 0.8 H Eos # (Auto) 0.1 Baso # (Auto) 0.1 Abs Immat Gran (auto) 0.04 H Absolute Neuts (auto) 6.9 H Absolute Nucleated RBC 0.000 Nucleated RBC % 0.0 Sodium 122 L 122 L Potassium 3.4 3.4 Chloride 89 L 89 L Carbon Dioxide 30 28 Anion Gap 3 L 5 BUN 3 L 3 L Creatinine 0.33 L 0.33 L Estim Creat Clear Calc 78 78 Estimated GFR > 60 > 60 Glucose 102 99 Calcium 8.8 8.7 Total Bilirubin 0.7 AST 33 ALT 26 Alkaline Phosphatase 100 Total Protein 6.2 L Albumin 3.2 L Quality VTE Prophylaxis VTE prophylaxis: mechanical ordered
[2025-07-31 09:09] LABS: Add Urine Microscopic? YES; Appearance Urine Clear (Clear); Glucose Urine UA Negative (Negative); Leukocyte Esterase Ur 1+ LEU/UL (Negative); Need Manual Microscopic Reviewed; Nitrate Urine Negative (Negative); Non Pathogenic Casts 0-2; Specific Grav Ur 1.007 (1.001-1.035)
[2025-07-31 09:10] LABS: Urea Random Urine 112 MG/DL
[2025-07-31 09:36] LABS: Total Protein Urine Random 17 mg/dL; Ur Ttl Prot Creatinine Ratio 0.53 mg/mg (0-0.20)
[2025-07-31] MEDS: SODIUM CHLORIDE 1 GM TABLET PO ×2 (12:00→17:01)
--- NOTE | 2025-07-31 12:22 | P.PNNP_ITS ---
Progress Note: A&P Assessment and Plan (1) Hyponatremia: Code(s): E87.1 - Hypo-osmolality and hyponatremia Status: Acute Assessment and Plan: * acute on chronic * sodium has running around 126 - 132 since 2021 * multiple risk factors for low sodium: * known lung disease/COPD * current smoker * pneumonia (on this admission) * HCTZ use * other(?) * evaluation to date noted: * TSH normal * cortisol okay * urine electrolytes non-prerena; * SPEP/UPEP with immunofixation and serum/urine osmolality pending * start fluid restriction and salt tabs * follow trend of repeat sodium levels (2) Acute respiratory failure with hypoxia: Code(s): J96.01 - Acute respiratory failure with hypoxia Status: Acute Assessment and Plan: * improving * as noted on presentation to ER * 86% on room air * placed on 2 L of O2 with improvement in her O2 sats to 90% * Viral PCR: negative for Flu/COVID/RSV * presumed to be secondary to pneumonia on top of known COPD * continue current therapy (3) Pneumonia: Qualifiers: Laterality: bilateral Lung location: unspecified part of lung P neumonia type: due to unspecified organism Qualified Code(s): J18.9 - Pneumonia, unspecified organism Code(s): J18.9 - Pneumonia, unspecified organism Status: Acute Assessment and Plan: * clinical improvement noted * as suggested by admission imaging: * CT C/A/P with patchy ground glass and consolidative airspace opacities in the posterior left upper and lower lobe concerning for multifocal airspace disease. * CXR: Bilateral pneumonia superimposed on chronic lung disease; left lung nodule * on antibiotics * culture data noted (negative to date) (4) Hypokalemia: Code(s): E87.6 - Hypokalemia Status: Acute Assessment and Plan: * stable * noted on admission * stable on scheduled supplementation * follow K+ levels (5) HTN (hypertension): Qualifiers: Hypertension type: essential hypertension Qualified Code(s): I10 - Essential (primary) hypertension Code(s): I10 - Essential (primary) hypertension Status: Chronic Assessment and Plan: * reasonable control * follow trend of hemodynamics * hold HCTZ (6) COPD (chronic obstructive pulmonary disease): Qualifiers: COPD type: unspecified COPD Qualified Code(s): J44.9 - Chronic obstructive pulmonary disease, unspecified Code(s): J44.9 - Chronic obstructive pulmonary disease, unspecified Status: Chronic Assessment and Plan: * suspected given evidence to date: * current smoker with 48 pack/yr history * moderate to severe emphysematous changes on CT imaging * nebulizer treatments while hospitalized * continue inhalers Will continue to follow. L Subjective Date/time seen: 07/31/25 12:22 Interval history: Follow-up for acute on chronic hyponatremia. No apparent distress noted at the time of my visit; respiratory status/breathing seems to have improved since admission; stable oxygenation on room air; no other issues/events overnight or earlier this morning. Exam 2 Narrative: General: thin and elderly female in NAD Heart: normal S1 and S2; no rub Lungs: coarse breath sounds Abdomen: soft, nontender, nondistended, positive bowel sounds Extremities: no cyanosis or clubbing; no edema Skin: warm and dry Objective Data Vital Signs Vital Signs: Vital Signs Temp Pulse Resp BP Pulse Ox O2 Del Method O2 Flow Rate 07/31/25 12:00 75 07/31/25 10:48 97 Room Air 07/31/25 08:42 102 H 07/31/25 08:00 92 07/31/25 08:00 94 Nasal Cannula 2 07/31/25 07:19 82 16 07/31/25 04:15 98.1 F 93 20 158/91 H 91 07/31/25 04:00 109 H 07/31/25 02:35 84 18 07/31/25 00:00 89 07/30/25 20:43 81 16 97 Nasal Cannula 1 07/30/25 20:39 81 16 07/30/25 20:05 98.1 F 80 20 160/90 H 96 07/30/25 20:00 78 07/30/25 20:00 81 16 97 Nasal Cannula 2 Intake/Output Intake/Output: Intake & Output 07/28/25 07/29/25 07/30/25 07/31/25 23:59 23:59 23:59 23:59 Intake Total 3186 2490.8 2507 1670 Output Total 300 Balance 3186 2490.8 2207 1670 Meds/Results Medications: Active Medications Generic Name Dose Route Start Last Admin Trade Name Freq PRN Reason Stop Dose Admin Acetaminophen 650 mg 07/27/25 14:39 Acetaminophen 325 Mg Tablet PO Q4H PRN Mild Pain (1-3) or Fever Hydrocodone Bitart/Acetaminophen 1 tab 07/27/25 14:39 Hydrocodone/Acetaminophen (*Crx) 5-325 Mg Tablet PO Q4H PRN Pain Rated 4-6 Albuterol/Ipratropium 3 ml 07/27/25 20:00 07/31/25 13:25 Ipratropium 0.5 Mg/Albuterol Sulfate 2.5 Mg (Base) Ampul.Neb 3 Ml INHALATION 3 ml Q6HRT SOFIA Administration Amoxicillin/Clavulanate Potassium 1 tablet 07/31/25 15:00 07/31/25 15:29 Amoxicillin/Clavulanate K 875-125 Mg Tab PO 08/02/25 21:01 1 tablet Q12HR SOFIA Administration Fluticasone Propionate 1 spray 07/27/25 18:55 07/31/25 17:01 Fluticasone Propionate 0.05% Na Spr 16 Gm Btl (*Bkc) NASAL 1 spray BID SOFIA Administration Fluticasone/Umeclidinium/Vilanterol 1 puff 07/28/25 09:00 07/31/25 07:18 Fluticasone/Umeclidin/Vilanter 100-62.5-25 Mcg Ellipta INHALATION 1 puff DAILY SOFIA Administration Guaifenesin 1,200 mg 07/30/25 21:00 07/31/25 08:42 Guaifenesin 12 Hr 600 Mg Tabcr PO 1,200 mg Q12HR SOFIA Administration Hydrochlorothiazide 25 mg 07/28/25 09:00 07/31/25 08:42 Hydrochlorothiazide 25 Mg Tablet PO 25 mg On Hold: 07/31/25 16:56 DAILY SOFIA Administration Metoprolol Tartrate 50 mg 07/28/25 09:00 07/31/25 08:42 Metoprolol Tartrate 50 Mg Tab PO 50 mg DAILY SOFIA Administration Potassium Chloride 40 meq 07/28/25 09:00 07/31/25 08:41 Potassium Chloride 20 Meq Packet (For Liquid) PO 08/01/25 09:01 40 meq DAILY SOFIA Administration Promethazine HCl 12.5 mg 07/27/25 14:39 Promethazine Hcl 25 Mg/Ml Ampul IV PUSH Q6H PRN Nausea Sodium Chloride 1 applic 07/29/25 21:00 07/30/25 21:30 Sodium Chloride Nasal Gel 14.1 Gm NASAL 1 applic HS SOFIA Administration Sodium Chloride 1 gm 07/31/25 11:30 07/31/25 17:01 Sodium Chloride 1 Gm Tablet PO 1 gm BID SOFIA Administration Tolterodine Tartrate 2 mg 07/28/25 09:00 07/31/25 08:41 Tolterodine Tartrate 2 Mg Tablet PO 2 mg DAILY SOFIA Administration Radiology Results: ITS Impressions Chest X-Ray 07/27/25 13:05 Impression: Bilateral pneumonia superimposed on chronic lung disease. Left lung nodule. Chest CT with contrast recommended Labs Labs: Laboratory Tests 07/31/25 06:42 07/31/25 06:42 Calcium 8.7 Total Bilirubin 0.7 AST 33 ALT 26 Alkaline Phosphatase 100 Total Protein 6.2 L Albumin 3.2 L Microbiology 07/27/25 14:01 Blood Blood Culture - Preliminary 07/27/25 14:04 Blood Blood Culture - Preliminary
[2025-07-31] MEDS: SODIUM CHLORIDE NASAL GEL 14.1 GM 1 APPLIC NASAL (22:02)
[2025-08-01] VITALS (12 sets, daily range): BP systolic 138; BP diastolic 82; PULSE 79–112; RESP 18; TEMP 37; O2SAT 91–94
[2025-08-01] MEDS: IPRATROPIUM 0.5 MG/ALBUTEROL SULFATE 2.5 MG (BASE) AMPUL.NEB 3 ML INHALATION ×3 (02:13→13:52)
[2025-08-01 06:35] LABS: Hematocrit 36.5 % (37.0-47.0); Hemoglobin 12.3 g/dL (12.0-15.0); Immature Granulocyte Percent A 0.4 % (0-0.5); Lymphocytes Absolute Auto 1.49 K/mm3 (0.9-3.2); Mean Corpuscular HGB Conc 33.7 g/dl (32-36); Mean Corpuscular Hemoglobin 29.6 pg (26-34); Mean Corpuscular Volume 87.7 fl (80-100); Nucleated Red Blood Cells Absolute Auto 0.000 K/mm3 (0.0-0.012); Nucleated Red Blood Cells Perc 0.0 % (0.0-0.2); Platelet Count Result 398 k/mm3 (150-375); Red Blood Count 4.16 M/mm3 (4.2-5.4); White Blood Count 9.6 K/mm3 (4.5-10.0)
[2025-08-01 07:02] LABS: Albumin Level 3.2 g/dL (3.5-5.1); Anion Gap 1 mmol/L (4-12); Blood Urea Nitrogen 7 mg/dL (7-17); Calcium 8.9 mg/dL (8.4-10.2); Carbon Dioxide 29 mmol/L (22-30); Chloride 93 mmol/L (98-107); Estimated CRCL calculation 69 ml/min; Estimated Glomerular Filt Rate > 60; Glucose 108 mg/dL (65-110); Potassium 3.8 mmol/L (3.4-5.0); Sodium 123 mmol/L (137-145)
[2025-08-01] MEDS: FLUTICASONE/UMECLIDIN/VILANTER 100-62.5-25 MCG ELLIPTA 1 PUFF INHALATION (08:22)
[2025-08-01] MEDS: guaiFENesin 12 HR 600 MG TABCR 1200 MG PO (08:57)
[2025-08-01] MEDS: TOLTERODINE TARTRATE 2 MG TABLET PO (08:57)
[2025-08-01] MEDS: SODIUM CHLORIDE 1 GM TABLET PO (08:57)
[2025-08-01] MEDS: POTASSIUM CHLORIDE 20 MEQ PACKET (FOR LIQUID) 40 MEQ PO (08:57)
[2025-08-01] MEDS: METOPROLOL TARTRATE 50 MG TAB PO (08:58)
[2025-08-01] MEDS: FLUTICASONE PROPIONATE 0.05% NA SPR 16 GM BTL (*BKC) 1 SPRAY NASAL (08:58)
--- NOTE | 2025-08-01 10:30 | P.PNNP_ITS ---
Progress Note: A&P Assessment and Plan (1) Hyponatremia: Code(s): E87.1 - Hypo-osmolality and hyponatremia Status: Acute Assessment and Plan: * mild improvement * acute on chronic * sodium has running around 126 - 132 since 2021 * multiple risk factors for low sodium: * known lung disease/COPD * current smoker * pneumonia (on this admission) * HCTZ use * other(?) * evaluation to date noted: * TSH normal * cortisol okay * urine electrolytes non-prerena; * SPEP/UPEP with immunofixation and serum/urine osmolality pending * on fluid restriction and salt tabs * follow trend of repeat sodium levels (2) Acute respiratory failure with hypoxia: Code(s): J96.01 - Acute respiratory failure with hypoxia Status: Acute Assessment and Plan: * improving/resolved * as noted on presentation to ER * 86% on room air * placed on 2 L of O2 with improvement in her O2 sats to 90% * Viral PCR: negative for Flu/COVID/RSV * presumed to be secondary to pneumonia on top of known COPD * continue current therapy (3) Pneumonia: Qualifiers: Laterality: bilateral Lung location: unspecified part of lung P neumonia type: due to unspecified organism Qualified Code(s): J18.9 - Pneumonia, unspecified organism Code(s): J18.9 - Pneumonia, unspecified organism Status: Acute Assessment and Plan: * clinical improvement noted * as suggested by admission imaging: * CT C/A/P with patchy ground glass and consolidative airspace opacities in the posterior left upper and lower lobe concerning for multifocal airspace disease. * CXR: Bilateral pneumonia superimposed on chronic lung disease; left lung nodule * on antibiotics * culture data noted (negative to date) (4) Hypokalemia: Code(s): E87.6 - Hypokalemia Status: Acute Assessment and Plan: * stable/resolved * noted on admission * stable on scheduled supplementation * follow K+ levels (5) HTN (hypertension): Qualifiers: Hypertension type: essential hypertension Qualified Code(s): I10 - Essential (primary) hypertension Code(s): I10 - Essential (primary) hypertension Status: Chronic Assessment and Plan: * reasonable control * follow trend of hemodynamics * hold HCTZ (6) COPD (chronic obstructive pulmonary disease): Qualifiers: COPD type: unspecified COPD Qualified Code(s): J44.9 - Chronic obstructive pulmonary disease, unspecified Code(s): J44.9 - Chronic obstructive pulmonary disease, unspecified Status: Chronic Assessment and Plan: * suspected given evidence to date: * current smoker with 48 pack/yr history * moderate to severe emphysematous changes on CT imaging * nebulizer treatments while hospitalized * continue inhalers Will continue to follow. L Subjective Date/time seen: 08/01/25 10:30 Interval history: Follow-up for acute on chronic hyponatremia. Continues to do well with regard to her breathing/respiratory status; started on fluid restriction and salt tabs yesterday due to persistent low sodium levels although she appears otherwise asymptomatic; no apparent distress noted at the time of my visit. Exam 2 Narrative: General: thin and elderly female in NAD Heart: normal S1 and S2; no rub Lungs: coarse breath sounds Abdomen: soft, nontender, nondistended, positive bowel sounds Extremities: no cyanosis or clubbing; no edema Skin: warm and intact Objective Data Vital Signs Vital Signs: Vital Signs Temp Pulse Resp BP Pulse Ox O2 Del Method FiO2 08/01/25 08:58 112 H 08/01/25 08:55 Room Air 08/01/25 08:27 106 H 18 08/01/25 08:23 99 18 08/01/25 08:23 91 Room Air 08/01/25 08:01 99 08/01/25 04:35 98.6 F 106 H 18 138/82 94 08/01/25 04:00 84 08/01/25 02:21 100 18 08/01/25 02:16 96 18 08/01/25 00:00 79 07/31/25 21:03 81 18 07/31/25 20:58 80 16 07/31/25 20:58 93 Room Air 07/31/25 20:10 98.9 F 88 16 145/74 H 92 07/31/25 20:00 87 07/31/25 20:00 100 18 93 Room Air 21 07/31/25 16:00 76 07/31/25 14:00 97.5 F L 82 18 150/77 H 92 Intake/Output Intake/Output: Intake & Output 07/29/25 07/30/25 07/31/25 08/01/25 23:59 23:59 23:59 23:59 Intake Total 2490.8 2507 1670 360 Output Total 300 Balance 2490.8 0687 1670 360 Meds/Results Medications: Active Medications Generic Name Dose Route Start Last Admin Trade Name Freq PRN Reason Stop Dose Admin Acetaminophen 650 mg 07/27/25 14:39 Acetaminophen 325 Mg Tablet PO Q4H PRN Mild Pain (1-3) or Fever Hydrocodone Bitart/Acetaminophen 1 tab 07/27/25 14:39 Hydrocodone/Acetaminophen (*Crx) 5-325 Mg Tablet PO Q4H PRN Pain Rated 4-6 Albuterol/Ipratropium 3 ml 07/27/25 20:00 08/01/25 08:22 Ipratropium 0.5 Mg/Albuterol Sulfate 2.5 Mg (Base) Ampul.Neb 3 Ml INHALATION 3 ml Q6HRT SOFIA Administration Amoxicillin/Clavulanate Potassium 1 tablet 07/31/25 15:00 08/01/25 08:57 Amoxicillin/Clavulanate K 875-125 Mg Tab PO 08/02/25 21:01 1 tablet Q12HR SOFIA Administration Fluticasone Propionate 1 spray 07/27/25 18:55 08/01/25 08:58 Fluticasone Propionate 0.05% Na Spr 16 Gm Btl (*Bkc) NASAL 1 spray BID SOFIA Administration Fluticasone/Umeclidinium/Vilanterol 1 puff 07/28/25 09:00 08/01/25 08:22 Fluticasone/Umeclidin/Vilanter 100-62.5-25 Mcg Ellipta INHALATION 1 puff DAILY SOFIA Administration Guaifenesin 1,200 mg 07/30/25 21:00 08/01/25 08:57 Guaifenesin 12 Hr 600 Mg Tabcr PO 1,200 mg Q12HR SOFIA Administration Hydrochlorothiazide 25 mg 07/28/25 09:00 07/31/25 08:42 Hydrochlorothiazide 25 Mg Tablet PO 25 mg On Hold: 07/31/25 16:56 DAILY SOFIA Administration Metoprolol Tartrate 50 mg 07/28/25 09:00 08/01/25 08:58 Metoprolol Tartrate 50 Mg Tab PO 50 mg DAILY SOFIA Administration Promethazine HCl 12.5 mg 07/27/25 14:39 Promethazine Hcl 25 Mg/Ml Ampul IV PUSH Q6H PRN Nausea Sodium Chloride 1 applic 07/29/25 21:00 07/31/25 22:02 Sodium Chloride Nasal Gel 14.1 Gm NASAL 1 applic HS SOFIA Administration Sodium Chloride 1 gm 07/31/25 11:30 08/01/25 08:57 Sodium Chloride 1 Gm Tablet PO 1 gm BID SOFIA Administration Tolterodine Tartrate 2 mg 07/28/25 09:00 08/01/25 08:57 Tolterodine Tartrate 2 Mg Tablet PO 2 mg DAILY SOFIA Administration Radiology Results: ITS Impressions Chest X-Ray 07/27/25 13:05 Impression: Bilateral pneumonia superimposed on chronic lung disease. Left lung nodule. Chest CT with contrast recommended Labs Labs: Laboratory Tests 08/01/25 05:55 08/01/25 05:55 Calcium 8.9 Phosphorus 3.8 Albumin 3.2 L
--- NOTE | 2025-08-01 14:14 | PM.DS ---
DS: Admitting Diagnosis Discharge Date 08/01/ Admitting Diagnosis sob DS: Discharge Diagnosis Discharge Diagnosis (1) Acute respiratory failure with hypoxia: Code(s): J96.01 - Acute respiratory failure with hypoxia Status: Acute (2) Pneumonia: Qualifiers: Laterality: bilateral Lung location: unspecified part of lung Pneumonia type: due to unspecified organism Qualified Code(s): J18.9 - Pneumonia, unspecified organism Code(s): J18.9 - Pneumonia, unspecified organism Status: Acute (3) Hyponatremia: Code(s): E87.1 - Hypo-osmolality and hyponatremia Status: Acute (4) Hypokalemia: Code(s): E87.6 - Hypokalemia Status: Acute (5) COPD (chronic obstructive pulmonary disease): Qualifiers: COPD type: unspecified COPD Qualified Code(s): J44.9 - Chronic obstructive pulmonary disease, unspecified Code(s): J44.9 - Chronic obstructive pulmonary disease, unspecified Status: Chronic Assessment and Plan: Current smoker with 48 pack/yr history. No official COPD diagnosis. Chest CT with moderate to severe emphysematous changes with scattered subsegmental atelectasis and scarring -albuterol inhaler and Breztri at home -DuoNebs while inpatient -smoking cessation information provided - recommend PCP to obtain PFTs in the outpatient setting - consider pulmonology consult if no improvement (6) HTN (hypertension): Qualifiers: Hypertension type: essential hypertension Qualified Code(s): I10 - Essential (primary) hypertension Code(s): I10 - Essential (primary) hypertension Status: Chronic Assessment and Plan: Continue hydrochlorothiazide and metoprolol Blood pressures reviewed and remain stable. DS: Summary Hospital Course Hospital Course: 75-year-old female with past medical history of COPD-baseline RA, current smoker, HTN presented to the ED on 07/27/2025 with complaints of shortness of breath over the last 2 weeks. # Hyponatremia: Chronic hyponatremia dating back to 2021 with baseline being low 130s Na 125 on admission, started on NS without improvement rule out SIDAH 2/2 SCLC with chest xr: unremarkable adrenal insufficiency: cortisol and TSH WNL - nephrology consulted- she was started on salt tabs and fluid restriction of 1600 Nephrology started her on salt tablets yesterday and we discussed that it is advisable to watch her another day to ensure na level is stable- continues to improved. She understands it but absolutely wants to go home. She will have a repeat labs and a close f/u with PCP/nephrology. # Acute respiratory failure with hypoxia: # Pneumonia Upon arrival to the ED, patient was found to be 86% on room air and subsequently placed on 2 L of O2 with improvement in her O2 sats to 90%. - Oxygen supplementation: weaned to room air with stable saturations, maintain spo2 > 90 - Suspected cause: pneumonia, possible underlying COPD given patients smoking history (pack/day for 48 years) and emphsymatous changes on imaging - Will need a home o2 eval prior to discharge - see plan below Chest abdomen pelvis from outside facility on 07/27: patchy ground glass and consolidative airspace opacities in the posterior. left upper and lower lobe concerning for multifocal airspace disease. See report for full impression. CXR: Bilateral pneumonia superimposed on chronic lung disease. Left lung nodule. - started on CAP tx: azithromycin ceftriaxone 07/27, transitioned to Augmentin on 07/31 to complete course - oxygen supplementation: 1L NC - Viral PCR: negative for Flu/COVID/RSV - blood cultures obtained on 07/27: NGTD had total of three more doses of augmentin-RX sent. Smoking cessation counselling completed. Time Spent with Patient Time attestation: Total time spent providing and/or coordinating discharge services: Exam Narrative: General: female in no acute respiratory distress who is nontoxic appearing, sitting up on side of bed HEENT: Normocephalic. Atraumatic. Extraocular movement intact. Sclera clear and anicteric. No facial asymmetry. Chest: Lungs are slightly diminished to auscultation bilaterally CV: Heart was regular rate and rhythm. Abd: Abdomen was soft. Nontender. Nondistended. Positive bowel sounds Ext: No clubbing, cyanosis, or edema. DP pulses bilaterally. Neuro: Patient is alert. Speech is clear. Const: General: comfortable DS: Data Data Completed and Pending Labs on day of discharge: Labs from last 24 hours 08/01/25 05:55 WBC 9.6 RBC 4.16 L Hgb 12.3 Hct 36.5 L MCV 87.7 MCH 29.6 MCHC 33.7 RDW 14.4 Plt Count 398 H MPV 9.1 Immature Gran % (Auto) 0.4 Neut % (Auto) 72.2 Lymph % (Auto) 15.6 L [place] % (Auto) 10.9 H Eos % (Auto) 0.4 Baso % (Auto) 0.5 Lymph # (Auto) 1.49 [place] # (Auto) 1.0 H Eos # (Auto) 0.0 Baso # (Auto) 0.1 Abs Immat Gran (auto) 0.04 H Absolute Neuts (auto) 6.9 H Absolute Nucleated RBC 0.000 Nucleated RBC % 0.0 Sodium 123 L Potassium 3.8 Chloride 93 L Carbon Dioxide 29 Anion Gap 1 L BUN 7 Creatinine 0.38 L Estim Creat Clear Calc 69 Estimated GFR > 60 Glucose 108 Calcium 8.9 Phosphorus 3.8 Albumin 3.2 L Preliminary micro results at discharge 07/27/25 14:01 Blood Culture - Preliminary Blood 07/27/25 14:04 Blood Culture - Preliminary Blood Discharge Plan Discharge Attending physician on discharge: Allan Padilla Consulting providers: Tami Montes; Delfin Lo Discharging Clinician: Anna Rivas Patient Disposition: Home Activity: may shower Diet: other - see discharge instructions Discharge Instructions: You have total of 3 doses of antibiotics left - next dose tonight. Please follow 1600ml fluid restrictions (which is roughly 53 oz) and take salt pills. Please have your blood work completed in couple of days to re assess sodium level and have a close f/u with your PCP and kidney doctor. Please come back to ED if feeling shortness of breath, chest pain, and/or any other new or concerning symptims. Patient Instructions: Antibiotic Form, How to Stop Smoking (DC) Patient Language: Hungarian Stand Alone Forms: General Discharge Information Follow-up/Referrals: Delfin Lo MD [Physician, Nephrology] - 2 Weeks Girish Medina MD [Primary Care Provider, Internal Medicine] - 1 Week Discharge Medications: New sodium chloride 1,000 mg Tablet,Soluble 1,000 mg PO BID Qty: 60 0RF amoxicillin-pot clavulanate 875-125 mg tablet 1 tablet PO Q12H Qty: 3 0RF Continued alendronate 70 mg tablet See Rx Instructions .ROUTE .COMPLEX Qty: 12 2RF Dose Instruction: TAKE 1 TABLET BY MOUTH WEEKLY Rx Instructions: TAKE 1 TABLET BY MOUTH WEEKLY fluticasone propionate [Flonase Allergy Relief] 50 mcg/actuation spray,suspension 1 spray intranasal BID Qty: 48 2RF Rx Instructions: administer into each nostril metoprolol ta-hydrochlorothiaz 50-25 mg tablet See Rx Instructions .ROUTE .COMPLEX Qty: 90 2RF Dose Instruction: TAKE 1 TABLET BY MOUTH EVERY DAY Rx Instructions: TAKE 1 TABLET BY MOUTH EVERY DAY tolterodine 2 mg tablet 2 mg PO DAILY Qty: 90 2RF Breztri Aerosphere 160-9-4.8 mcg/actuation HFA aerosol inhaler 2 inh inhalation BID Qty: 32.1 2RF albuterol sulfate 90 mcg/actuation HFA aerosol inhaler See Rx Instructions .ROUTE .COMPLEX Qty: 8.5 3RF Dose Instruction: INHALE 1 PUFF BY MOUTH EVERY 4 HOURS Rx Instructions: INHALE 1 PUFF BY MOUTH EVERY 4 HOURS Other Ambulatory Orders: Comprehensive Metabolic Panel (Routine) Timeframe: 1 Week Location: Determined by Patient Ordered By: Anna Rivas Date of admission: 07/27/25 15:27 Primary Care Provider: Girish Medina Admitting Provider: Isaac Grossman Attending physician on admission: Isaac Grossman Condition: Stable Quality VTE Prophylaxis VTE prophylaxis: mechanical ordered Hospitalist MIPS Heart Failure (Exclusion) Patient has history of Heart Transplant or Left Ventricular Assistive Device?: No IF YES, STOP HERE Heart Failure (Qualifier) Patient has current or prior documentation of LVEF less than or equal to 40%, or mod/servere depressed LVSF?: No IF NO, STOP HERE
[2025-08-01 22:07] LABS: Osmolality, Serum 257 mOsmol/kg (280-301)
[2025-08-03 12:08] LABS: Osmolality, Urine 213 mOsmol/kg (.)
[2025-08-03 14:08] LABS: Albumin 2.8 g/dL (2.9-4.4); Alpha-1-Globulin 0.3 g/dL (0.0-0.4); Alpha-2-Globulin 0.6 g/dL (0.4-1.0); Gamma Globulin 0.8 g/dL (0.4-1.8)
[2025-08-04 14:08] LABS: Albumin, U 42.6 % (.); Alpha-1-Globulin, U 6.1 % (.); Alpha-2-Globulin, U 16.9 % (.); Beta Globulin, U 22.9 % (.); Gamma Globulin, U 11.5 % (.)
[2025-08-04 14:08] LABS: Immunoglobulin A, Qn 554 mg/dL (64-422); Immunoglobulin G, Qn 839 mg/dL (586-1602); Immunoglobulin M, Qn 103 mg/dL (26-217)
[2025-08-07 12:43] LABS: Potassium 2.6 mmol/L (3.4-5.0)
== END 2025-08-01 15:04 | disposition home or self-care (01) | DRG 190 ==
LOC: ANHED 13:09 → ANH3MEDSUR 15:22
PROVIDERS: Internal Medicine; Internal Medicine Nephrology; Nurse Practitioner Adult Health; Student in an Organized Health Care Education/Training Program; Admitting Provider General Practice; Emergency Provider Emergency Medicine; PCP Emergency Medicine; Visit Provider Nurse Practitioner
DX: J44.0 Chronic obstructive pulmonary disease with (acute) lower respiratory infection (principal); J18.9 Pneumonia, unspecified organism; E27.49 Other adrenocortical insufficiency; E87.1 Hypo-osmolality and hyponatremia; J20.9 Acute bronchitis, unspecified; I10 Essential (primary) hypertension; E87.6 Hypokalemia; D72.829 Elevated white blood cell count, unspecified; R09.02 Hypoxemia; E83.42 Hypomagnesemia; F17.210 Nicotine dependence, cigarettes, uncomplicated; Z20.822 Contact with and (suspected) exposure to COVID-19; F10.90 Alcohol use, unspecified, uncomplicated; Z79.51 Long term (current) use of inhaled steroids
CPT/HCPCS: 36415; 71046; 80048; 80053; 80069; 81001; 82533; 82570; 82784; 83605; 83735; 83930; 83935; 84100; 84132; 84155; 84156; 84165; 84166; 84300; 84443; 84540; 85025; 85027; 86334; 86335; 87040; 87086; 87637; 87641; 93005; 94640; 94667; 96365; 99285; A9270; G0378; J0456; J0696; J3480; J7030; J7040; J7050

== ENCOUNTER 2025-08-04 07:09 | Outpatient (CLI) | payer OTHER, SELFPAY ==
--- OUTSIDE RECORDS SUMMARY | 2025-08-04 07:12 | XMS_ITS | Clinical Summary ---
Author Organization [facility] Address [address] [place] [address] Care Team Providers Care Autistic Teacher Name Role Phone Girish Medina MD Primary Care Provide r Allergies No known active allergies Encounters Date Type Department Care Team Description 07/27/2025 7:42 AM CDT - 07/27/2025 11:59 PM CDT Hospital [facility] [address] [place] [address] Abdominal pain, unspecified abdominal location; Shortness of breath Discharge Disposition: Discharge to home or self care from Last 3 Months Social History Tobacco Use Types Packs/Day Years Used Date Smoking Tobacco: Never Assessed Comments Unknown Sex and Gender Information Value Date Recorded Sex Assigned at Not on file 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 Gender Identity Not on file Sexual Orientation [...] history exists Zoster Vaccine Completed 04/04/2025, 01/21/2025 Procedures Procedure Name Priority Date/Time Associated Diagnosis Comments CT CHEST ABDOMEN PELVIS W CONTRAST Schedule Routine, Read Routine (OP Routine) 07/27/2025 8:09 AM CDT Abdominal pain, unspecified abdominal location Shortness of breath from Last 3 Months Results * CT Chest Abdomen Pelvis W Contrast (07/27/2025 8:09 AM CDT) Anatomical Region Laterality Modality Body N/A Computed Tomogra phy 07/27/2025 2:20 PM CDT Narrative 07/27/2025 2:38 PM CDT EXAM DESCRIPTION: CT CHEST ABDOMEN PELVIS W CONTRAST REASON FOR STUDY: R10.9, R06.02 Epigastric pain and SOB for about 6 months No surg Hx TECHNIQUE: CT scan of the chest, abdomen, and pelvis performed with intravenous and without oral contrast using helical scanning technique with dynamic intravenous contrast injection. Reconstructed coronal and sagittal MPR images reviewed. All images stored on PACS. Automated exposure control was used as a dose optimization technique for this examination. CONTRAST TYPE/DOSE: 90mL of IOVERSOL 350 MG IODINE/ML INTRAVENOUS SYRINGE injected via intravenous COMPARISON: None FINDINGS: CHEST LUNGS: There is no definite evidence of a pneumothorax. There is scattered mild bronchial wall thickening with mucous plugging, which is likely related to mild acute bronchitis/bronchiolitis superimposed on chronic bronchitis/bronchiolitis. There are moderate to severe emphysematous changes of lungs with scattered subsegmental atelectasis and scarring. There is no definite evidence of a pleural effusion. There patchy ground-glass and consolidative airspace opacities in the posterior left upper lobe and left lower lobe, which is concerning for multifocal airspace disease of inflammatory or infectious etiology. MEDIASTINUM/MARCIN: The heart size is normal. There is no definite evidence of pericardial effusion. There are atherosclerotic changes of the coronary vessels. There are atherosclerotic changes of the aorta with bilobed aneurysmal dilatation of the infrarenal abdominal aorta with the proximal aneurysmal component measuring 2.5 cm in the transverse dimension by 2.4 cm in the AP dimension and the distal aneurysmal component measuring 3.3 cm in the transverse dimension by 2.9 cm in the AP dimension (axial image 45). 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 There are borderline enlarged and prominent subcentimeter mediastinal lymph nodes with the largest measuring 1.0 cm in the precarinal region (axial image 48). There are borderline enlarged and prominent subcentimeter left hilar lymph nodes noted with largest measuring 1.1 cm (axial image 58). CHEST WALL: No masses. No subcutaneous air. HARDWARE/LINES/TUBES: None. ABDOMEN/PELVIS LIVER: The liver is grossly normal in size and contour. There is a too small to characterize hypoattenuating lesion in the inferior right hepatic lobe measuring 0.5 cm, which does not require follow-up imaging. The hepatic and portal veins are grossly patent. GALLBLADDER: Grossly unremarkable. BILE DUCTS: No intrahepatic or extrahepatic ductal dilatation. SPLEEN: The spleen is grossly normal in size and unremarkable. PANCREAS: The pancreas appears grossly unremarkable without definite evidence of pancreatic ductal dilatation, peripancreatic inflammatory changes, or peripancreatic fluid collection. ADRENALS: There is an indeterminate right adrenal nodule measuring 2.2 cm. There is an indeterminate left adrenal nodule measuring 1.1 cm. KIDNEYS/URINARY TRACT: The bilateral kidneys enhance symmetrically. There are multiple too small to characterize hypoattenuating lesions in the bilateral kidneys, which do not require follow-up imaging. There is no definite evidence of hydronephrosis or hydroureter. There is mild mucosal thickening of the urinary bladder. GI: There is no definite evidence of a bowel obstruction. There is mild mucosal thickening of the gastric antrum. The appendix is visualized without definite evidence of pericecal or periappendiceal inflammatory changes to suggest appendicitis. There is mild mucosal thickening of the distal transverse colon, descending colon, and sigmoid colon. There are scattered colonic diverticula without definite evidence of diverticulitis. There is no definite evidence of free air or fluid in the abdomen and pelvis. There is no definite evidence of lymphadenopathy in the abdomen and pelvis. REPRODUCTIVE: The uterus is surgically absent. MUSCULOSKELETAL: There is mild osteopenia with degenerative changes of the spine, bilateral sacroiliac joints, and bilateral hips. OTHER: No significant abnormality. IMPRESSION: 1. Patchy ground-glass and consolidative airspace opacities in the posterior left upper lobe and left lower lobe, which is concerning for multifocal airspace disease of inflammatory or infectious etiology. Short-term follow-up chest CT in 6-12 weeks is recommended to assess for resolution and to exclude the presence of an underlying pulmonary nodule as clinically indicated. 2. Scattered mild bronchial wall thickening with mucous plugging, which is likely related to mild acute bronchitis/bronchiolitis superimposed on chronic bronchitis/bronchiolitis. 3. Moderate to severe emphysematous changes of lungs with scattered subsegmental atelectasis and scarring. Recommend evaluation for annual lung cancer screening enrollment if the patient qualifies based on clinical factors and smoking history. 4. Borderline enlarged and prominent subcentimeter mediastinal and left hilar lymph nodes, which are likely reactive. Continued attention on the aforementioned follow-up chest CT is recommended as clinically indicated. 5. No definite evidence of bowel obstruction. 6. Mild mucosal thickening of the distal transverse colon, descending colon, and sigmoid colon, which may be related to underdistention versus mild colitis of infectious or inflammatory etiology. 7. Mild mucosal thickening of the urinary bladder, which may be related to underdistention versus cystitis. Clinical correlation with urinary analysis is recommended as clinically indicated. 8. Mild mucosal thickening of the gastric antrum, which may be related to underdistention versus focal gastritis. Further evaluation with endoscopy is recommended as clinically indicated. 9. Bilateral indeterminate adrenal nodules. Further evaluation with CT or MRI with adrenal protocol on a nonemergent basis is recommended as clinically indicated. 10. Atherosclerotic changes of the aorta with bilobed aneurysmal dilatation of the infrarenal abdominal aorta measuring up to 3.3 cm. Please see below for follow-up recommendations per consensus criteria. 11. Scattered colonic diverticula without definite evidence of diverticulitis. Aorta recommendation: 3.0-3.9 cm Recommended surveillance imaging at 3-year intervals per Society for Vascular Surgery Guidelines: J Vasc Surgery 2008 50: s2s49; updated Oct 2017 J Vasc Surgery 67:277 THIS IS AN ELECTRONICALLY VERIFIED FINAL REPORT 07/27/2025 2:38 PM - Electronically signed by Racheal FIGUEROA T: Report ID: [id number] Reading Location: [id number] Procedure Note Racheal Chin DO - 07/27/2025 EXAM DESCRIPTION: CT CHEST ABDOMEN PELVIS W CONTRAST REASON FOR STUDY: R10.9, R06.02 Epigastric pain and SOB for about 6 months No surg Hx TECHNIQUE: CT scan of the chest, abdomen, and pelvis performed with intravenous and without oral contrast using helical scanning techniquewith dynamic intravenous contrast injection. Reconstructed coronal and sagittalMPR images reviewed. All images stored on PACS. Automated exposure control was used as a dose optimization technique for this examination. CONTRAST TYPE/DOSE: 90mL of IOVERSOL 350 MG IODINE/ML INTRAVENOUS SYRINGE injected via intravenous COMPARISON: None FINDINGS: CHEST LUNGS: There is no definite evidence of a pneumothorax. There isscattered mild bronchial wall thickening with mucous plugging, which is likelyrelated to mild acute bronchitis/bronchiolitis superimposed on chronic bronchitis/bronchiolitis. There are moderate to severe emphysematouschanges of lungs with scattered subsegmental atelectasis and scarring. There isno definite evidence of a pleural effusion. There patchy ground-glass and consolidative airspace opacities in the posterior left upper lobe and left lower lobe, which is concerning for multifocal airspace disease of inflammatory or infectious etiology. MEDIASTINUM/MARCIN: The heart size is normal. There is no definiteevidence of pericardial effusion. There are atherosclerotic changes of thecoronary vessels. There are atherosclerotic changes of the aorta with bilobed aneurysmal dilatation of the infrarenal abdominal aorta with the proximal aneurysmal component measuring 2.5 cm in the transverse dimension by 2.4cm in the AP dimension and the distal aneurysmal component measuring 3.3 cm inthe transverse dimension by 2.9 cm in the AP dimension (axial image 45).There is occlusion of the mid right external iliac artery with reconstitution offlow distally. There are borderline enlarged and prominent subcentimeter mediastinallymph nodes with the largest measuring 1.0 cm in the precarinal region (axialimage 48). There are borderline enlarged and prominent subcentimeter left hilar lymph nodes noted with largest measuring 1.1 cm (axial image 58). CHEST WALL: No masses. No subcutaneous air. HARDWARE/LINES/TUBES: None. ABDOMEN/PELVIS LIVER: The liver is grossly normal in size and contour. There is a too small to characterize hypoattenuating lesion in the inferior right hepatic lobe measuring 0.5 cm, which does not require follow-up imaging. Thehepatic and portal veins are grossly patent. GALLBLADDER: Grossly unremarkable. BILE DUCTS: No intrahepatic or extrahepatic ductal dilatation. SPLEEN: The spleen is grossly normal in size and unremarkable. PANCREAS: The pancreas appears grossly unremarkable without definite evidence of pancreatic ductal dilatation, peripancreatic inflammatorychanges, or peripancreatic fluid collection. ADRENALS: There is an indeterminate right adrenal nodule measuring 2.2cm. There is an indeterminate left adrenal nodule measuring 1.1 cm. KIDNEYS/URINARY TRACT: The bilateral kidneys enhance symmetrically.There are multiple too small to characterize hypoattenuating lesions in the bilateral kidneys, which do not require follow-up imaging. There is no definite evidence of hydronephrosis or hydroureter. There is mildmucosal thickening of the urinary bladder. GI: There is no definite evidence of a bowel obstruction. There is mild mucosal thickening of the gastric antrum. The appendix is visualizedwithout definite evidence of pericecal or periappendiceal inflammatory changes to suggest appendicitis. There is mild mucosal thickening of the distal transverse colon, descending colon, and sigmoid colon. There arescattered colonic diverticula without definite evidence of diverticulitis. There isno definite evidence of free air or fluid in the abdomen and pelvis. Thereis no definite evidence of lymphadenopathy in the abdomen and pelvis. REPRODUCTIVE: The uterus is surgically absent. MUSCULOSKELETAL: There is mild osteopenia with degenerative changes ofthe spine, bilateral sacroiliac joints, and bilateral hips. OTHER: No significant abnormality. IMPRESSION: 1. Patchy ground-glass and consolidative airspace opacities in theposterior left upper lobe and left lower lobe, which is concerning for multifocal airspace disease of inflammatory or infectious etiology. [id number] chest CT in 6-12 weeks is recommended to assess for resolution and toexclude the presence of an underlying pulmonary nodule as clinically indicated. 2. Scattered mild bronchial wall thickening with mucous plugging, whichis likely related to mild acute bronchitis/bronchiolitis superimposed onchronic bronchitis/bronchiolitis. 3. Moderate to severe emphysematous changes of lungs with scattered subsegmental atelectasis and scarring. Recommend evaluation for annuallung cancer screening enrollment if the patient qualifies based on clinicalfactors and smoking history. 4. Borderline enlarged and prominent subcentimeter mediastinal and left hilar lymph nodes, which are likely reactive. Continued attention on the aforementioned follow-up chest CT is recommended as clinically indicated. 5. No definite evidence of bowel obstruction. 6. Mild mucosal thickening of the distal transverse colon, descendingcolon, and sigmoid colon, which may be related to underdistention versus mildcolitis of infectious or inflammatory etiology. 7. Mild mucosal thickening of the urinary bladder, which may be relatedto underdistention versus cystitis. Clinical correlation with urinaryanalysis is recommended as clinically indicated. 8. Mild mucosal thickening of the gastric antrum, which may be relatedto underdistention versus focal gastritis. Further evaluation with endoscopyis recommended as clinically indicated. 9. Bilateral indeterminate adrenal nodules. Further evaluation with CTor MRI with adrenal protocol on a nonemergent basis is recommended asclinically indicated. 10. Atherosclerotic changes of the aorta with bilobed aneurysmaldilatation of the infrarenal abdominal aorta measuring up to 3.3 cm. Please seebelow for follow-up recommendations per consensus criteria. 11. Scattered colonic diverticula without definite evidence of diverticulitis. Aorta recommendation: 3.0-3.9 cm Recommended surveillance imaging at3-year intervals per Society for Vascular Surgery Guidelines: J Vasc Surgery 2009Oct 50: s2s49; updated Oct 2017 J Vasc Surgery 67:277 THIS IS AN ELECTRONICALLY VERIFIED FINAL REPORT 07/27/2025 2:38 PM - Electronically signed by Racheal Chin D.O. PS T: Report ID: [id number] Reading Location: [place] [address] Girish Medina MD IMG CT PROCEDURES Fin al Result from Last 3 Months Insurance [facility] CHOICE PLUS Care Teams Autistic Teacher Relationship Specialty Start Date End Date Girish Medina MD [address] [place], [place] [id number] PCP - General Emergency Medicine 07/20/25
[2025-08-04 08:53] LABS: Alanine Aminotransferase 24 U/L (6-35); Albumin Level 3.8 g/dL (3.5-5.1); Alkaline Phosphatase 91 U/L (38-126); Anion Gap 6 mmol/L (4-12); Aspartate Amino Transferase 48 U/L (14-36); Bilirubin,Total 1.1 mg/dL (0.2-1.3); Blood Urea Nitrogen 6 mg/dL (7-17); Calcium 9.2 mg/dL (8.4-10.2); Carbon Dioxide 29 mmol/L (22-30); Chloride 90 mmol/L (98-107); Estimated Glomerular Filt Rate > 60; Glucose 94 mg/dL (65-110); Potassium 4.0 mmol/L (3.4-5.0); Sodium 125 mmol/L (137-145); Total Protein 7.1 g/dL (6.3-8.2)
== END 2025-08-04 07:10 | disposition home or self-care (01) ==
LOC: ANHLAB 07:10
PROVIDERS: PCP Emergency Medicine; Visit Provider Nurse Practitioner
DX: E87.6 Hypokalemia (principal); E87.1 Hypo-osmolality and hyponatremia
CPT/HCPCS: 36415; 80053